=== PATIENT | male | born 1955 | race Caucasian/White ===

== ENCOUNTER 2022-07-19 09:31 | Oncology outpatient (recurring) (ONCR) | payer OTHER, SELFPAY ==
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
[2022-07-19 11:09] LABS: Basophils % 0.5 %; Eosinophils # 0.3 10^3/uL (0.0-0.8); Eosinophils % 3.9 %; Hematocrit 43.6 % (42.0-52.0); Hemoglobin 14.6 g/dL (11.7-16.6); Lymphocytes # 2.5 10^3/uL (0.8-4.8); Lymphocytes % 30.8 %; Mean Corpuscular HGB Conc 33.5 g/dL (30.0-36.0); Mean Corpuscular Hemoglobin 30.2 pg (28.0-34.0); Mean Corpuscular Volume 90.1 fl (80-94); Mean Platelet Volume 9.4 fL (7.4-10.4); Monocytes # 0.6 10^3/uL (0.2-0.9); Neutrophils # 4.58 10^3/uL (1.8-7.7); Neutrophils % 57.7 %; Nucleated Red Blood Cells % 0 %; Platelet Count 295 10^3/cmm (130-400); Red Blood Count 4.84 10^6/uL (4.1-5.3)
[2022-07-19 11:46] LABS: Alanine Aminotransferase 13 U/L (0-41); Alkaline Phosphatase 114 U/L (40-130); Anion Gap 17.2 (5-19); Aspartate Amino Transferase 19 U/L (0-40); Blood Urea Nitrogen 20 mg/dL (8-23); Calcium 9.1 mg/dL (8.5-10.5); Carbon Dioxide 23 mmol/L (22-29); Chloride 102 mmol/L (98-107); Glomerular Filtration Rate 96.7 mL/min (90-130); Glucose 90 mg/dL (65-115); Lactate Dehydrogenase 279 U/L (135-225); Osmolality Calculated 288 mOsm/kg (285-295); Potassium 4.2 mmol/L (3.5-5.1); Sodium 138 mmol/L (136-145); Total Bilirubin 0.4 mg/dL (0.15-1.2)
== END 2022-07-25 23:59 | disposition home or self-care (01) ==
PROVIDERS: Visit Provider Radiology Radiation Oncology
DX: C79.31 Secondary malignant neoplasm of brain (principal); Z85.820 Personal history of malignant melanoma of skin; C43.9 Malignant melanoma of skin, unspecified
CPT/HCPCS: 36415; 80053; 83615; 85025; 99205

== ENCOUNTER 2022-08-03 06:00 | Oncology outpatient (recurring) (ONCR) | payer OTHER, SELFPAY ==
[2022-08-23 07:03] LABS: BRAF V600E (BBPL) See Report
== END 2022-08-24 23:59 | disposition home or self-care (01) ==
LOC: ONCMED 08-20 16:08
PROVIDERS: Radiology Radiation Oncology; Visit Provider Internal Medicine Hematology & Oncology
DX: Z53.9 Procedure and treatment not carried out, unspecified reason (principal)
CPT/HCPCS: 80503; 81210

== ENCOUNTER 2023-08-13 10:30 | Oncology outpatient (recurring) (ONCR) | payer OTHER, SELFPAY ==
[2023-07-31 13:35] LABS: Basophils # 0.1 10^3/uL (0.0-0.1); Basophils % 0.6 %; Eosinophils # 0.4 10^3/uL (0.0-0.8); Eosinophils % 4.3 %; Hematocrit 44.5 % (37-53); Lymphocytes # 2.2 10^3/uL (0.8-4.8); Lymphocytes % 25.1 %; Mean Corpuscular HGB Conc 33.7 g/dL (30-55); Mean Corpuscular Hemoglobin 30.1 pg (27-33); Mean Corpuscular Volume 89.2 fl (82-101); Mean Platelet Volume 9.4 fL (7.4-10.4); Monocytes # 0.6 10^3/uL (0.2-0.9); Neutrophils # 5.37 10^3/uL (1.8-7.7); Neutrophils % 62.8 %; Nucleated Red Blood Cells % 0 %; Platelet Count 277 10^3/cmm (157-399); Red Blood Count 4.99 10^6/uL (3.85-5.65); White Blood Count 8.56 10^3/uL (3.29-11.43)
[2023-07-31 14:07] LABS: Alanine Aminotransferase 14 U/L (0-41); Albumin Level 3.7 g/dL (3.5-5.2); Alkaline Phosphatase 92 U/L (40-130); Anion Gap 13.4 (5-19); Aspartate Amino Transferase 22 U/L (0-40); Blood Urea Nitrogen 18 mg/dL (8-23); Calcium 8.4 mg/dL (8.5-10.5); Carbon Dioxide 24 mmol/L (22-29); Chloride 104 mmol/L (98-107); Globulin 2.7 g/dL (1.3-4.6); Glomerular Filtration Rate 134.4 mL/min (90-130); Glucose 152 mg/dL (65-115); Lactate Dehydrogenase 230 U/L (135-225); Osmolality Calculated 289 mOsm/kg (285-295); Potassium 4.4 mmol/L (3.5-5.1); Sodium 137 mmol/L (136-145); Thyroid Stimulating Hormone 1.64 uIU/mL (0.27-4.20); Total Bilirubin 0.2 mg/dL (0.15-1.2); Total Protein 6.4 g/dL (6.6-8.7)
[2023-08-13 12:30] VITALS: BMI 27.8
[2023-08-13 13:03] LABS: Basophils # 0.1 10^3/uL (0.0-0.1); Basophils % 0.7 %; Eosinophils # 0.4 10^3/uL (0.0-0.8); Eosinophils % 4.8 %; Hematocrit 42.6 % (37-53); Lymphocytes % 26.9 %; Mean Corpuscular HGB Conc 32.9 g/dL (30-55); Mean Corpuscular Hemoglobin 29.4 pg (27-33); Mean Corpuscular Volume 89.5 fl (82-101); Mean Platelet Volume 9.3 fL (7.4-10.4); Monocytes # 0.7 10^3/uL (0.2-0.9); Monocytes % 8.8 %; Neutrophils # 4.31 10^3/uL (1.8-7.7); Neutrophils % 58.7 %; Nucleated Red Blood Cells % 0 %; Platelet Count 281 10^3/cmm (157-399); Red Blood Count 4.76 10^6/uL (3.85-5.65); Red Cell Distribution Width 13.1 % (12.1-15.1); White Blood Count 7.35 10^3/uL (3.29-11.43)
[2023-08-13 13:34] LABS: Alanine Aminotransferase 13 U/L (0-41); Albumin Level 3.5 g/dL (3.5-5.2); Alkaline Phosphatase 107 U/L (40-130); Anion Gap 12.7 (5-19); Aspartate Amino Transferase 23 U/L (0-40); Blood Urea Nitrogen 21 mg/dL (8-23); Calcium 8.6 mg/dL (8.5-10.5); Carbon Dioxide 28 mmol/L (22-29); Chloride 104 mmol/L (98-107); Globulin 2.9 g/dL (1.3-4.6); Glomerular Filtration Rate 66.8 mL/min (90-130); Glucose 112 mg/dL (65-115); Osmolality Calculated 294 mOsm/kg (285-295); Potassium 4.7 mmol/L (3.5-5.1); Sodium 140 mmol/L (136-145); Thyroid Stimulating Hormone 2.46 uIU/mL (0.27-4.20); Total Bilirubin 0.2 mg/dL (0.15-1.2); Total Protein 6.4 g/dL (6.6-8.7)
[2023-08-13] MEDS: sodium chloride 0.9% 250 ML 75 ML IV (14:19)
[2023-08-13] MEDS: acetaminophen 325 mg Tablet 650 MG PO (14:22)
[2023-08-13] MEDS: diphenhydrAMINE 50 mg/mL SDV 1mL IVP (14:23)
[2023-08-13] MEDS: famotidine 20 mg/2 mL INJ IVP (14:23)
[2023-08-13] MEDS: dexamethasone 20 MG in sodium chloride 0.9% 50 ML 188 MG IV (14:28)
[2023-08-13] MEDS: nivolumab 240 MG in sodium chloride 0.9% 250 ML 548 MG IV (14:52)
[2023-08-13 16:40] VITALS: BP 156/89; PULSE 84; RESP 16; TEMP 36.8; O2SAT 97
--- NOTE | 2023-08-14 17:43 | N.ONRAD NP_ITS ---
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 Now with disease progression at least in soft tissue of left flank and right chest. Now beginning Opdivo and Yervoy today. Restaging MRI head and PET/CT now scheduled. Radiotherapy to date: Summary > No prior radiation therapy. Chief Complaint / History of Present Illness: He had a cutaneous melanoma resected from his upper back performed elsewhere in the past. No further information is available. 04/2022 resection of right occipital lobe mass which was metastatic melanoma. Staging CT chest abd and pelvis negative. Staging Pet/CT 08/2022 malignant appearing soft tissue mass left flank with uptake consistent with metastatic disease on my review No adjuvant treatment pursued. Not compliant with follow-up. No additional follow-up imaging.. Now notes significant neck pain, progressively enlarging left flank mass and new right anterior chest mass both causing some pain. He also notes that left hand time buyer is weak for 10 years and [facility] that [facility]. . No nausea or vomiting. Gained 10 pounds in last 6 months. Some JIMENEZ with no other neurologic symptoms. No seizures. Current Medications: atenolol 50 mg PO DAILY, gabapentin 300 mg PO BID, meloxicam 15 mg PO DAILY, tamsulosin (Flomax) 0.4 mg PO DAILY Allergies: No Known Allergies Allergy Medical History: No history of collagen vascular disease. No previous radiation therapy. Melanoma Surgical History: resected melanoma Family History: Mother: Anesthesia complication, Cancer, Dementia Family/Other: Cancer uncle on throat cancer Family/Other Cancer niece had blood cancer Father: Stroke Denies family history of Diabetes, CAD (coronary artery disease), Clotting disorder, Hyperlipidemia, Psychiatric illness, Chronic kidney disease (CKD), Suicide, Bleeding disorder, Family history of premature coronary artery disease, Lung disease, Hypertension Social History: . Lives alone . He does have supportive friends. Was in [employer] 1972 to 1976. Smokes ??? ppd from 18 to current time. Enjoyed motorcycles. 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 Current Complaints / Review of Systems: . Vital Signs: Performed on 08/13/2023 10:42 AM BMI - 28.038 kg/m2 (high), Height - 68 in, Weight - 184.4 lbs, Temperature - 97.5 f, Pulse - 65 /min, Respiration - 16 /min, O2 Sat - 97 %, Pain - 7, Fatigue - 0 and BP - 140/ 81 mm(hg). Physical Exam: Elderly appearing for his age. No palpable cervical or supraclavicular adenopathy. Neck supple with no spinal tenderness. General reduced cervical range of motion. 2 x 2 cm right inferior medial breast-chest wall mass. 13 x 7 cm visible minimal mobile left posterior left lumbar level mass domed with normal overlying skin. Left time buyer weakness without other focal neurologic deficits. Performance Status: ECOG 1 Pathology: none available. 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 Now with known progressive symptomatic soft tissue metastases in left flank and right chest regions. He also has neck pain worrisome for possible osseous involvement and headaches with history of resected brain met in 04/2022. . Recommend proceeding now with Opdivo and Yervoy as planned. Need restaging eval with MRI brain and PET/CT to assist in directing course of palliative radiation. Discussed in detail with patient. Signed by: 08/14/2023 5:41:31 PM <<Signature on File>> Time spent with patient: CPT Code: CPT Code:
== END 2023-08-13 23:59 | disposition home or self-care (01) ==
PROVIDERS: Visit Provider Internal Medicine Medical Oncology
DX: Z51.11 Encounter for antineoplastic chemotherapy (principal); C79.31 Secondary malignant neoplasm of brain; C79.51 Secondary malignant neoplasm of bone; C43.9 Malignant melanoma of skin, unspecified
CPT/HCPCS: 36415; 80053; 83615; 84443; 85025; 96367; 96375; 96413; 96415; 99205; 99215; J1100; J1200; J3490; J7050; J9228; J9299

== ENCOUNTER → 2023-08-15 13:10 | Outpatient (BNVA) | payer OTHER, SELFPAY | PROVIDERS: PCP Nurse Practitioner; Visit Provider Surgery | DX: C79.31 Secondary malignant neoplasm of brain (principal); C43.9 Malignant melanoma of skin, unspecified | CPT/HCPCS: 99204 ==

== ENCOUNTER 2023-08-20 09:45 | Oncology outpatient (recurring) (ONCR) | payer OTHER, SELFPAY | END 2023-08-24 23:59 | disposition home or self-care (01) | PROVIDERS: Visit Provider Internal Medicine Medical Oncology | DX: Z53.9 Procedure and treatment not carried out, unspecified reason (principal) ==

== ENCOUNTER 2023-08-28 09:48 | Day surgery (SDC) | payer OTHER, SELFPAY ==
[2023-08-28] VITALS (11 sets, daily range): BP systolic 103–147; BP diastolic 60–88; PULSE 66–92; RESP 16–18; TEMP 36.2–36.6; O2SAT 94–99; BMI 29.0
--- NOTE | 2023-08-28 06:31 | W.PM.OPSUD ---
Surgery/Procedure H&P Update DATE OF PROCEDURE: August 28, 2023 DATE H&P PERFORMED: 08/15/23 H&P UPDATE INFORMATION: I have reviewed H&P completed within last 30 days, I have examined patient prior to procedure, No changes to prior documentation and H&P is in [facility] EMR on date indicated PLANNED PROCEDURE: Operation Date: 08/28/23 11:35 Proposed Procedures p 34465 Placement of port a cath C79.31(Not Applicable) - Rolan Bolden MD
--- NOTE | 2023-08-28 10:36 | SC_ITS ---
WS: [id number] EXAMINATION: C-arm FL for CVA [id number] REASON FOR EXAM: port a cath COMPARISON: None available. ORDER DATE: 08/28/2023 10:36 AM FINDINGS: Port-A-Cath placement appears to be satisfactory on the right with tip in the region of the cavoatria l junction IMPRESSION: Total fluoroscopy time 21.8 seconds
[2023-08-28] MEDS: sodium chloride 0.9% 1,000 ML 30 ML IV (10:41)
--- NOTE | 2023-08-28 11:12 | ANES.PREANE2 ---
Pre-Anesthetic Assessment Height/Weight: Height 1.68 m Weight 81.647 kg O2 Del Method Room Air 08/28/23 10:30 Operation Date: 08/28/23 11:35 Proposed Procedures p 75377 Placement of port a cath C79.31(Not Applicable) - Rolan Bloden MD Familial anesthetic complications: None Was Beta Austin taken within 24 hours: Yes Was Clonidine taken within 24 hours: N/A Last intake: Intake Last Liquid Date 08/27/23 Last Liquid Time 22:00 Last Solid Date 08/27/23 Last Solid Time 22:00 Social Tobacco and No alcohol Exam alert, oriented x 3, clear to auscultation bilaterally and regular rate & rhythm Airway Mallampati: Class II Dentition: full CV/HEM Hypertension Musc/skel malignant melanoma Anesthetic Plan ASA status: 3 Anesthesia: MAC Risk of > 500 ml blood loss (7ml/kg in children): No Medications/Allergies Home Medications Medication Instructions Recorded Confirmed Last Taken Type atenolol 50 mg tablet 50 mg PO DAILY 07/31/23 08/27/23 08/27/23 History gabapentin 300 mg capsule 300 mg PO BID 07/31/23 08/27/23 08/27/23 History meloxicam 15 mg tablet 15 mg PO DAILY 07/31/23 08/27/23 08/27/23 History tamsulosin 0.4 mg capsule (Flomax) 0.4 mg PO DAILY 07/31/23 08/27/23 08/27/23 History prochlorperazine maleate 10 mg 10 mg PO Q4H PRN Mild Nausea #30 08/08/23 08/28/23 08/27/23 Rx tablet (Compazine) tabs aspirin 81 mg tablet,delayed 81 mg PO DAILY 08/15/23 08/28/23 08/27/23 History release oxycodone 5 mg tablet 5 mg PO TID PRN Pain 08/26/23 08/27/23 08/27/23 History sildenafil 50 mg tablet 50 mg PO DAILY PRN Sexual Activity 08/26/23 08/28/23 08/27/23 History Allergies Allergy/AdvReac Type Severity Reaction Status Date / Time No Known Allergies Allergy Verified 08/28/23 10:28 Current Medications Generic Name Dose Route Start Last Admin Trade Name Freq PRN Reason Stop Dose Admin Sodium Chloride 1,000 mls @ 30 mls/hr 08/28/23 10:45 08/28/23 10:41 Sodium Chloride 0.9% IV 08/29/23 10:44 30 mls/hr .Q24H MERCEDES Administration PFSH Anesthesia Medical History (Updated 08/26/23 @ 14:58 by Raaht Helm) Melanoma Family History Mother Anesthesia complication Cancer Dementia Family/Other Cancer uncle on throat cancer Family/Other Cancer niece had blood cancer Father Stroke Denies family history of Diabetes CAD (coronary artery disease) Clotting disorder Hyperlipidemia Psychiatric illness Chronic kidney disease (CKD) Suicide Bleeding disorder Family history of premature coronary artery disease Lung disease Hypertension Social History (Updated 08/26/23 @ 14:59 by Rahat Helm) Smoking and tobacco status: current every day smoker cigarettes Packs smoked per day: 0.25 Years cigarettes smoked: 50 [ Other cigarette details: smoked since 1972] Data Anesthesia Cardiac Studies: No Data to Display
[2023-08-28] MEDS: ceFAZolin 2,000 MG in sodium chloride 0.9% (plus) 50 ML 100 MG IV (12:23)
[2023-08-28] MEDS: lidocaine-epi 2% 20 mL INJ INJECTION (12:49)
[2023-08-28] MEDS: heparin, porcine 1,000 unit/mL INJ 10 mL 10000 UNIT IRRIGATION (13:11)
--- NOTE | 2023-08-28 13:15 | PM.OP ---
Operative Report Date of procedure: August 28, 2023 Pre-op diagnosis: Metastatic melanoma Post-op diagnosis: Same Procedure done: Right IJ Port-A-Cath placement Implants: Part Port-A-Cath Surgeon: Rolan Bolden MD Estimated blood loss: 5 cc Complications: None Findings: Normal vascular anatomy Brief History: 67-year-old male with metastatic melanoma who requires chemotherapy, I have been asked to proceed with a port placement. All the risk and benefits of the procedure were discussed with the patient as documented in my preop note. Procedure: Patient was brought into the OR, placed in the supine position. Moderate anesthesia sedation was given. The neck and right chest was prepped and draped in the usual sterile fashion. Timeout was conducted. The right IJ was identified with ultrasound, local anesthesia was injected. I then cannulated the right IJ under direct ultrasound guidance, the needle tip was seen entering the vessel and immediate blood return was noted. A wire was advanced, needle removed wire position was verified with ultrasound and with fluoroscopy. I then placed my attention into the chest I injected local anesthesia the area where the Port-A-Cath is going to sit, I also injected local anesthesia in the area where the toenail from the chest to the neck was going to be. I then made a 2.5 cm incision on the right upper chest, the incision was deepened to subcutaneous tissue using electrocautery, electrocautery was then used to create subcutaneous pocket to house the Port-A-Cath. I then used a hemostat to create a tunnel from the area of the Port-A-Cath to the neck. I then made a 0.5 cm incision at the area of wire insertion site at the neck. The cord was then placed in the pocket and the catheter tunneled to the neck using the tunneler. Catheter was flushed to verify integrity after tunneling and measure under fluoroscopy guidance and Plan. I then advanced a peel-off sheath with an introducer through the wire under direct fluoroscopy guidance, the wire and introducer were removed leaving only the sheath. The catheter was then advanced through the sheath and the peel off sheath was then removed leaving the catheter in place. Adequate blood return and flushing was noted. The catheter was hep-locked. I then proceeded to close the wounds using #3-0 Vicryl for the subcutaneous tissue and #4 Monocryl for the skin. Dermabond was applied. At the end of the procedure all counts were correct. The patient tolerated well the procedure and was transferred to the PACU in stable condition.
--- NOTE | 2023-08-28 13:57 | ANE.PACU2 ---
Inpatient post-anesthesia follow up: Airway intact: Yes Vital signs: Temperature 97.8 F Pulse Rate 72 Respiratory Rate 16 Blood Pressure 109/82 Pulse Oximetry 94 Oxygen Delivery Me thod Room Air Oxygen Flow Rate Fraction of Inspir ed Oxygen Hydration adequate: Yes Nausea and vomiting: No Pain level: 1 Mental status: Baseline
--- NOTE | 2023-08-28 14:41 | PM.OP2 ---
Brief Operative Note Date of procedure: 08/28/23 Procedure Done: Port-A-Cath placement Post-op Plan: patient doing well after Port-A-Cath placement, has not been able to obtain a ride home and does not have an escort. Therefore we have decided to keep the patient in observation overnight as it would not be safe for the patient to go home without an escort. Coding Level of Care Code Acute Code for g Ingris
--- NOTE | 2023-08-28 14:45 | PC.NURSE ---
unable to find someone to be with patient at home for [address] Dillon. Plan to admit for 24 hour observation. Awaiting room number. Patient stable.
--- NOTE | 2023-08-28 15:48 | SUR.PHASEII ---
Patient admitted for observation overnight due to no one at home to monitor him after anesthesia. Report called to MS nurse, all questions answered.
[2023-08-28] MEDS: oxyCODONE 5 mg IR Tab/Cap PO ×2 (16:40→23:03)
[2023-08-28] MEDS: gabapentin 300 mg Capsule PO (16:40)
== END 2023-08-28 23:15 | disposition home or self-care (01) ==
LOC: OR 10:35 → MEDSURG 15:43
PROVIDERS: PCP Nurse Practitioner; Visit Provider Surgery
PROC: (CPT 36561; principal; 2023-08-28 11:25)
DX: C79.31 Secondary malignant neoplasm of brain (principal); C43.9 Malignant melanoma of skin, unspecified
CPT/HCPCS: 36561; 76000; 77001; C1788; J0690; J1644; J2250; J2704; J3010; J7030

== ENCOUNTER 2023-08-30 11:57 | Emergency (ER) | payer OTHER, SELFPAY ==
[2023-08-30 12:17] VITALS: BP 157/92; PULSE 87; RESP 16; TEMP 37; O2SAT 100; BMI 30.3
--- NOTE | 2023-08-30 12:39 | ED_ITS ---
HPI - Abdominal Pain General: Chief Complaint: Abdominal Pain Stated Complaint: hernia rupture Time Seen by Provider: 08/30/23 12:28 Source: patient Mode of arrival: ambulatory Limitations: no limitations History of Present Illness: Patient presents to the emergency department today for evaluation treatment of right groin pain. 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 He reports as a child he had hernia repair but denies any repair as an adult. He states that sometimes goes in and out but today, he coughed hard and states he thinks he ripped it open . He has some testicular heaviness on the right but no specific pain. He has been able to urinate since this occurred. He has not been having sweats or vomiting. Review of Systems General: Reports: 10 or more systems reviewed and unremarkable except in HPI and below PFSH ED PFSH: Medical History Melanoma Family History Mother Anesthesia complication Cancer Dementia Family/Other Cancer uncle on throat cancer Family/Other Cancer niece had blood cancer Father Stroke Denies family history of Diabetes CAD (coronary artery disease) Clotting disorder Hyperlipidemia Psychiatric illness Chronic kidney disease (CKD) Suicide Bleeding disorder Family history of premature coronary artery disease Lung disease Hypertension Social History Smoking and tobacco status: current every day smoker cigarettes Packs smoked per day: 0.25 Years cigarettes smoked: 50 [ Other cigarette details: smoked since 1972] Physical Exam Const: COMMON NORMALS: patient oriented x3 and alert OTHER: Patient is pleasant but obviously uncomfortable. HENMT: COMMON NORMALS: normocephalic, atraumatic, hearing grossly normal bilaterally and moist oral mucous membranes HEAD & SCALP: normocephalic and atraumatic Eye: COMMON NORMALS: Equal, round and reactive pupils present, EOMs intact bilaterally and conjunctivae normal CONJUNCTIVA: Yes conjunctivae normal PUPIL: Yes Equal, round and reactive pupils present Neck/C-Spine: COMMON NORMALS: full ROM and no JVD Lymph: LYMPHATIC: no lymphadenopathy noted Resp: COMMON NORMALS: normal respiratory effort, No retractions, No use of accessory muscles and clear to auscultation bilaterally AUSCULTATION: clear to auscultation bilaterally Cardio: COMMON NORMALS: no JVD, regular rate and regular rhythm RATE: regular rate RHYTHM: regular rhythm GI: OTHER: Patient has obvious bulging in the right groin region. Area is profusely tender on palpation but no overlying erythema. Skin is soft. : COMMON NORMALS: Yes no CVA tenderness BLADDER/KIDNEY EXAM: Yes no CVA tenderness OTHER: No obvious scrotal swelling. No scrotal erythema. Back/Pelvis: COMMON NORMALS: no CVA tenderness, no thoracic nor lumbar tenderness and thoraco-lumbar ROM normal Extremity: COMMON NORMALS: normal to inspection, full ROM and capillary refill normal Neuro: COMMON NORMALS: patient oriented x3 SENSORIUM/ORIENTATION: Yes alert Psych: COMMON NORMALS: mental status grossly normal, Normal thought process present, cooperative, normal affect and activity/motor behavior normal THOUGHT PROCESS: Normal thought process present Skin: COMMON NORMALS: no rashes or lesions noted and no wounds GENERAL SKIN EXAM: no rashes or lesions noted Course Vital Signs: Vital signs: Vital Signs Temperature 98.6 F 08/30/23 12:17 Pulse Rate 83 08/30/23 12:46 Respiratory Rate 17 08/30/23 12:46 Blood Pressure 163/107 08/30/23 12:46 Pulse Oximetry 97 08/30/23 12:46 Oxygen Delivery Me thod Room Air 08/30/23 12:46 MDM - Abdominal Pain Medical Decision Making Originally, ultrasound was ordered to quickly evaluate for incarcerated bowel and loss of blood flow however, patient's lab work came back relatively quickly and was able to have a CT exam. I was notified by the radiologist that there was only fat-containing inguinal hernia without signs of incarceration or bowel present. However, he was concerned as it does appear that several areas of the patient's metastatic disease have progressed. Also there was bladder wall th ickening concerning for cystitis. Urinalysis revealed white blood cells and blood but very little bacteria-quite a bit of yeast present. This would correlate with his immunocompromise state. I did discuss the case with Dr. Magallon who attended patient at bedside and performed a partial reduction of the hernia though bits of the soft tissue and fat continued to poke through even after reduction. We refer the patient onto general surgery to discuss more definitive management of his hernias but, strict return precautions for return of hernia-including signs of incarcerated hernia were provided. I did discuss with him treatment of a yeast cystitis and the finding of the enlarging metastatic region to the soft tissue of his left lower back. Patient verbalized understanding and agreement to treatment plan. Differential Diagnosis Likely abdominal pain; Unlikely acute appendicitis, calculus of kidney, constipation, diverticulitis, gastroenteritis, pancreatitis or small bowel obstruction Lab Data 08/30/23 12:40 08/30/23 12:40 Labs/Radiology: Laboratory Results WBC 8.59 10^3/uL (3.29-11.43) 08/30/23 12:40 RBC 5.03 10^6/uL (3.85-5.65) 08/30/23 12:40 Hgb 14.80 g/dL (11.27-16.99) 08/30/23 12:40 Hct 44.4 % (37-53) 08/30/23 12:40 MCV 88.3 fl (82-101) 08/30/23 12:40 MCH 29.4 pg (27-33) 08/30/23 12:40 MCHC 33.3 g/dL (30-55) 08/30/23 12:40 RDW 13.1 % (12.1-15.1) 08/30/23 12:40 Plt Count 296 10^3/cmm (157-399) 08/30/23 12:40 MPV 9.4 fL (7.4-10.4) 08/30/23 12:40 Neut % (Auto) 68.4 % 08/30/23 12:40 Lymph % (Auto) 21.1 % 08/30/23 12:40 [place] % (Auto) 8.0 % 08/30/23 12:40 Eos % (Auto) 1.7 % 08/30/23 12:40 Baso % (Auto) 0.6 % 08/30/23 12:40 Neut # (Auto) 5.87 10^3/uL (1.8-7.7) 08/30/23 12:40 Lymph # (Auto) 1.8 10^3/uL (0.8-4.8) 08/30/23 12:40 [place] # (Auto) 0.7 10^3/uL (0.2-0.9) 08/30/23 12:40 Eos # (Auto) 0.2 10^3/uL (0.0-0.8) 08/30/23 12:40 Baso # (Auto) 0.1 10^3/uL (0.0-0.1) 08/30/23 12:40 Nucleated RBC % (auto) 0 % 08/30/23 12:40 Nucleated RBCs # 0.0 /100WBC 08/30/23 12:40 Sodium 137 mmol/L (136-145) 08/30/23 12:40 Potassium 4.5 mmol/L (3.5-5.1) 08/30/23 12:40 Chloride 98 mmol/L (98-107) 08/30/23 12:40 Carbon Dioxide 29 mmol/L (22-29) 08/30/23 12:40 Anion Gap 14.5 (5-19) 08/30/23 12:40 BUN 18 mg/dL (8-23) 08/30/23 12:40 Creatinine 0.9 mg/dL (0.7-1.2) 08/30/23 12:40 GFR Calculation 84.2 mL/min (90-130) L 08/30/23 12:40 Glucose 102 mg/dL (65-115) 08/30/23 12:40 Calculated Osmolality 286 mOsm/kg (285-295) 08/30/23 12:40 Calcium 9.5 mg/dL (8.5-10.5) 08/30/23 12:40 Total Bilirubin 0.4 mg/dL (0.15-1.2) 08/30/23 12:40 AST 24 U/L (0-40) 08/30/23 12:40 ALT 15 U/L (0-41) 08/30/23 12:40 Alkaline Phosphatase 108 U/L (40-130) 08/30/23 12:40 Total Protein 7.3 g/dL (6.6-8.7) 08/30/23 12:40 Albumin 4.1 g/dL (3.5-5.2) 08/30/23 12:40 Globulin 3.2 g/dL (1.3-4.6) 08/30/23 12:40 Urine Color Yellow (Yellow) 08/30/23 14:23 Urine Appearance Cloudy (CLEAR) A 08/30/23 14:23 Urine pH 6.5 (5-7) 08/30/23 14:23 Ur Specific [place] 1.010 (1.005-1.030) 08/30/23 14:23 Urine Protein Trace (Negative) 08/30/23 14:23 Urine Glucose (UA) Norm (Normal) 08/30/23 14:23 Urine Ketones Negative (Negative) 08/30/23 14:23 Urine Blood 2+ (Negative) H 08/30/23 14:23 Urine Nitrate Negative (Negative) 08/30/23 14:23 Urine Bilirubin Neg (Negative) 08/30/23 14:23 Urine Urobilinogen Norm mg/dL (Negative) 08/30/23 14:23 Ur Leukocyte Esterase 2+ (Negative) H 08/30/23 14:23 Urine RBC 0-4 /hpf (0-2) H 08/30/23 14:23 Urine WBC 25-40 /hpf (0-5) H 08/30/23 14:23 Ur Squamous Epith Cells 0-4 /hpf (0-5) H 08/30/23 14:23 Amorphous Sediment Not Reportable 08/30/23 14:23 Urine Bacteria Trace /hpf (NONE) 08/30/23 14:23 Urine Yeast 2+ /hpf H 08/30/23 14:23 All radiology interpretation(s) finalized by discharge Discharge Plan Discharge Patient Disposition: Home Clinical Impression: Hernia, inguinal, right, Yeast infection Condition: Stable Prescriptions: New fluconazole 200 mg tablet 200 mg PO DAILY 14 Days Qty: 14 0RF No Action aspirin 81 mg tablet,delayed release (DR/EC) 81 mg PO QAM atenolol 50 mg tablet 50 mg PO QAM tamsulosin [Flomax] 0.4 mg capsule 0.4 mg PO DAILY gabapentin 300 mg capsule 300 mg PO BID sildenafil 50 mg tablet 50 mg PO DAILY PRN (Reason: Sexual Activity) Rx Instructions: administer 30 minutes to 4 hours before activity/1 tab broken in half prochlorperazine maleate [Compazine] 10 mg tablet 10 mg PO Q4H PRN (Reason: Mild Nausea) Qty: 30 3RF oxycodone 5 mg tablet 5 mg PO Q8H PRN (Reason: pain) Qty: 10 0RF meloxicam 7.5 mg tablet 7.5 mg PO QAM Discharge Orders: Discharge ED (Routine); Ordered 08/30/23 Ordered By: Jumana Ford Referrals: Jade Adamson, PERMANENT MOLD SUPERVISOR [Primary Care Provider] - Discharge Diet: Usual diet Discharge Activity: Increase activity as tolerated Patient Instructions: Yeast Infection (ED), Pain Management Activity Restrictions/Additional Instructions: Lab work today showed no signs of acute concerns. CT examination revealed soft tissue and a fat-containing inguinal hernia without any intestinal involvement or concerns for intestinal incarceration. Given that this seems to come and go and you have had issues with this in the past, we are referring you back to general surgery for evaluation to discuss more definitive treatment. However, if this happens again and you have severe pain, vomiting, develops sweats or fever you need to be seen and evaluated in the emergency department. CT scan also showed bladder wall thickening concerns for a cystitis or bladder infection. The urinalysis confirms signs of an infection but rather than bacteria, it appears to be a yeast cystitis. We are providing you medication to combat this infection and recommend a follow-up appoint with your primary care doctor after the course of treatment is completed to assure full resolution of all these findings. Incidentally, the CT examination also notes a significant enlargement in size of one of the metastases in your left low back soft tissue compared to previous examinations. We do recommend notifying your doctor of this finding so they are aware. Coding Level of Care Code ED Retail Cashier Associate for [employer]o Amado
[2023-08-30 12:44] VITALS: RESP 17
[2023-08-30] MEDS: morphine 4 mg/mL SDV 1 mL IVP (12:44)
[2023-08-30] MEDS: metoclopramide 5 mg/mL SDV 2 mL 10 MG IVP (12:44)
[2023-08-30] MEDS: sodium chloride 0.9% 1,000 ML 999 ML IV (12:45)
[2023-08-30] MEDS: ketorolac 30 mg/mL INJ IVP (12:45)
[2023-08-30 12:46] VITALS: BP 163/107; PULSE 83; RESP 17; O2SAT 97
[2023-08-30 12:56] LABS: Basophils # 0.1 10^3/uL (0.0-0.1); Basophils % 0.6 %; Eosinophils # 0.2 10^3/uL (0.0-0.8); Eosinophils % 1.7 %; Hematocrit 44.4 % (37-53); Lymphocytes # 1.8 10^3/uL (0.8-4.8); Lymphocytes % 21.1 %; Mean Corpuscular HGB Conc 33.3 g/dL (30-55); Mean Corpuscular Hemoglobin 29.4 pg (27-33); Mean Corpuscular Volume 88.3 fl (82-101); Mean Platelet Volume 9.4 fL (7.4-10.4); Monocytes # 0.7 10^3/uL (0.2-0.9); Neutrophils # 5.87 10^3/uL (1.8-7.7); Neutrophils % 68.4 %; Nucleated Red Blood Cells % 0 %; Platelet Count 296 10^3/cmm (157-399); Red Blood Count 5.03 10^6/uL (3.85-5.65); Red Cell Distribution Width 13.1 % (12.1-15.1); White Blood Count 8.59 10^3/uL (3.29-11.43)
[2023-08-30 13:17] LABS: Alanine Aminotransferase 15 U/L (0-41); Albumin Level 4.1 g/dL (3.5-5.2); Alkaline Phosphatase 108 U/L (40-130); Aspartate Amino Transferase 24 U/L (0-40); Blood Urea Nitrogen 18 mg/dL (8-23); Calcium 9.5 mg/dL (8.5-10.5); Carbon Dioxide 29 mmol/L (22-29); Chloride 98 mmol/L (98-107); Globulin 3.2 g/dL (1.3-4.6); Glomerular Filtration Rate 84.2 mL/min (90-130); Glucose 102 mg/dL (65-115); Osmolality Calculated 286 mOsm/kg (285-295); Sodium 137 mmol/L (136-145); Total Bilirubin 0.4 mg/dL (0.15-1.2); Total Protein 7.3 g/dL (6.6-8.7)
--- NOTE | 2023-08-30 13:19 | CT_ITS ---
WS: [id number] CT pelvis TECHNIQUE: Contrast-enhanced CT of the pelvis with coronal and sagittal reformatted images. CLINICAL INFORMATION: RLQ pain COMPARISON: None. DLP: 398.[address] scans at [facility] use at least one of these dose optimization techniques: automated e xposure control; mA and/or kV adjustment per patient size (includes targeted exams where dose is matc hed to clinical indication); or iterative reconstruction. FINDINGS: Previously described subcutaneous LEFT lower back metastatic lesion is significantly increased in siz e compared to the prior PET/CT 09/08/2022. Previously this measured approximately 3.2 x 2.7 cm and to day measures approximately 10.1 x 6.1 x 7.4 cm partially extending off the [id number] cranially. C entral necrosis. Tiny fat-containing umbilical hernia. Fat-containing RIGHT inguinal hernia is similar in appearance t o the prior PET/CT. No herniated or entrapped bowel. Diffuse bladder wall thickening can be seen with cystitis or bladder outlet obstruction. Mild prostat e hypertrophy measuring 3.4 cm. Advanced spondylitic changes lumbar spine. Chronic unilateral RIGHT L 5-S1 spondylolysis. Severe bilateral L5-S1 foraminal narrowing. Slight anterolisthesis L5 on S1. Disc narrowing visualized lower lumbar spine with vacuum disc phenomenon. IMPRESSION: 1. Fat-containing RIGHT inguinal hernia. No herniated bowel. This is similar in appearance to prior PET/CT 09/08/2022. 2. Large centrally necrotic subcutaneous LEFT lower back metastatic lesion described above is signif icantly increased in size since the prior PET/CT. 3. Mild diffuse bladder wall thickening can be seen with cystitis or bladder outlet obstruction. Mil d prostate enlargement measuring 3.4 cm. 4. No other acute findings. Notified WILLY Arana at 08/30/2023 2:07 PM.
[2023-08-30 13:20] LABS: Anion Gap 14.5 (5-19); Potassium 4.5 mmol/L (3.5-5.1)
[2023-08-30] MEDS: iohexol 350 mg/mL 500 mL Btl (per mL) IV (13:31)
[2023-08-30 14:57] LABS: Add Urine Microscopic? YES; Bilirubin Urine Neg (Negative); Blood Urine 2+ (Negative); Glucose Urine UA Norm (Normal); Ketones Urine Negative (Negative); Leukocyte Esterase Urine 2+ (Negative); Nitrate Urine Negative (Negative); Protein Urine Trace (Negative); Urine Appearance Cloudy (CLEAR); Urine Color Yellow (Yellow); Urobilinogen Urine Norm (Negative); pH Urine 6.5 (5-7)
[2023-08-30 14:59] LABS: Add Urine Culture? Yes; Bacteria Urine TRACE /hpf; Other Sediment, Urine BUD YEAST W/HYPHAE; RBC Urine 0-4 /hpf (0-2); Squamous Epithelial Cell Urine 0-4 /hpf (0-5); WBC Urine 25-40 /hpf (0-5)
--- NOTE | 2023-08-30 15:01 | PC.SOCIAL ---
General Surgery; referral to general surgery at this time. Clinic to contact patient with appt date/time.
== END 2023-08-30 15:21 | disposition home or self-care (01) ==
PROVIDERS: Emergency Provider Physician Assistant; PCP Nurse Practitioner
DX: K40.90 Unilateral inguinal hernia, without obstruction or gangrene, not specified as recurrent (principal); B37.9 Candidiasis, unspecified; Z79.82 Long term (current) use of aspirin; F17.210 Nicotine dependence, cigarettes, uncomplicated
CPT/HCPCS: 72193; 80053; 81001; 85025; 87086; 87106; 96361; 96374; 96375; 99285; J1885; J2270; J2765; J7030; Q9967

== ENCOUNTER 2023-09-11 11:15 | Outpatient (CLI) | payer OTHER, SELFPAY ==
[2023-09-11] MEDS: gadobenate dimeglumine 20 mL vial IV (12:06)
--- NOTE | 2023-09-11 13:00 | MR_ITS ---
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 Now having JIMENEZ COMPARISON: 05/24/2022, 05/17/2022 TECHNIQUE: Multiplanar imaging performed through the brain with MultiHance 17 ml's IV. Postoperative RIGHT occipital temporal craniotomy is reidentified. Patient is status post intra-axial tumor removal. Noted to be metastatic melanoma as per history. No recurrence of tumor at the resection site. There is no enhancement at the postoperative cavity. No new areas of nodularity or enhancement are identified. There is some motion artifact causing limitat ion. Diffusion imaging is normal. No mass effect or midline shift. No edema. No inferior displacement of t he cerebellar tonsils. Mild small vessel ischemic disease is identified. Increased T2 signal around t he RIGHT occipital horn is related to the resection cavity. Paranasal sinuses: Well aerated with no significant disease. Mastoid air cells: Normal. Calvarium and scalp: Normal. IMPRESSION: 1. Stable postoperative changes of RIGHT occipital temporal craniotomy. Resection of the previously described mass. No recurrence. No new areas of enhancement in the resection site. This study is mildl y compromised by motion artifact. 2. No acute infarct. 3. Mild small vessel ischemic disease.
== END 2023-09-11 11:16 | disposition home or self-care (01) ==
PROVIDERS: PCP Nurse Practitioner; Visit Provider Radiology Radiation Oncology
DX: C79.31 Secondary malignant neoplasm of brain (principal); R51.9 Headache, unspecified; I67.89 Other cerebrovascular disease; Z98.890 Other specified postprocedural states
CPT/HCPCS: 70553; A9577

== ENCOUNTER 2023-09-13 08:19 | Oncology outpatient (recurring) (ONCR) | payer OTHER, SELFPAY ==
[2023-08-26 12:45] VITALS: BP 115/70; PULSE 68; RESP 16; TEMP 36.7; O2SAT 98
[2023-08-26 13:14] LABS: Basophils # 0.1 10^3/uL (0.0-0.1); Basophils % 0.5 %; Eosinophils # 0.3 10^3/uL (0.0-0.8); Hematocrit 43.7 % (37-53); Lymphocytes # 1.9 10^3/uL (0.8-4.8); Lymphocytes % 17.4 %; Mean Corpuscular HGB Conc 32.3 g/dL (30-55); Mean Corpuscular Hemoglobin 29.4 pg (27-33); Mean Corpuscular Volume 91.2 fl (82-101); Mean Platelet Volume 9.4 fL (7.4-10.4); Monocytes # 0.8 10^3/uL (0.2-0.9); Monocytes % 7.3 %; Neutrophils % 71.5 %; Nucleated Red Blood Cells % 0 %; Platelet Count 280 10^3/cmm (157-399); Red Blood Count 4.79 10^6/uL (3.85-5.65); White Blood Count 10.89 10^3/uL (3.29-11.43)
[2023-08-26 13:33] LABS: Alkaline Phosphatase 98 U/L (40-130); Aspartate Amino Transferase 20 U/L (0-40); Blood Urea Nitrogen 31 mg/dL (8-23); Carbon Dioxide 27 mmol/L (22-29); Chloride 103 mmol/L (98-107); Glomerular Filtration Rate 84.2 mL/min (90-130); Glucose 84 mg/dL (65-115); Osmolality Calculated 294 mOsm/kg (285-295); Sodium 139 mmol/L (136-145); Total Bilirubin 0.4 mg/dL (0.15-1.2)
[2023-08-26 13:34] LABS: Anion Gap 13.5 (5-19); Potassium 4.5 mmol/L (3.5-5.1)
[2023-08-26 13:46] LABS: Alanine Aminotransferase 15 U/L (0-41)
[2023-09-12 08:58] VITALS: BP 158/89; PULSE 87; RESP 18; TEMP 36.6; O2SAT 99
[2023-09-12 09:01] LABS: Basophils # 0.1 10^3/uL (0.0-0.1); Basophils % 0.6 %; Eosinophils # 0.3 10^3/uL (0.0-0.8); Eosinophils % 2.6 %; Hematocrit 43.6 % (37-53); Lymphocytes # 2.5 10^3/uL (0.8-4.8); Mean Corpuscular HGB Conc 33.3 g/dL (30-55); Mean Corpuscular Volume 90.3 fl (82-101); Mean Platelet Volume 9.5 fL (7.4-10.4); Monocytes % 8.7 %; Neutrophils # 7.07 10^3/uL (1.8-7.7); Neutrophils % 64.8 %; Nucleated Red Blood Cells % 0 %; Platelet Count 262 10^3/cmm (157-399); Red Blood Count 4.83 10^6/uL (3.85-5.65); Red Cell Distribution Width 13.1 % (12.1-15.1)
[2023-09-12 09:30] LABS: Alanine Aminotransferase 18 U/L (0-41); Albumin Level 3.7 g/dL (3.5-5.2); Alkaline Phosphatase 92 U/L (40-130); Aspartate Amino Transferase 20 U/L (0-40); Blood Urea Nitrogen 21 mg/dL (8-23); Calcium 8.7 mg/dL (8.5-10.5); Carbon Dioxide 28 mmol/L (22-29); Globulin 2.8 g/dL (1.3-4.6); Glomerular Filtration Rate 84.2 mL/min (90-130); Glucose 148 mg/dL (65-115); Total Bilirubin 0.5 mg/dL (0.15-1.2); Total Protein 6.5 g/dL (6.6-8.7)
[2023-09-12 09:37] LABS: Anion Gap 11.9 (5-19); Chloride 102 mmol/L (98-107); Osmolality Calculated 292 mOsm/kg (285-295); Potassium 3.9 mmol/L (3.5-5.1); Sodium 138 mmol/L (136-145)
--- NOTE | 2023-09-12 11:44 | PC.NURSE ---
pt d/c home with PAC in place, to return tomorrow for treatment. opdivo not in stock today.
[2023-09-13 08:26] VITALS: BMI 29.7
[2023-09-13] MEDS: sodium chloride 0.9% 250 ML 75 ML IV (09:13)
[2023-09-13] MEDS: acetaminophen 325 mg Tablet 650 MG PO (09:15)
[2023-09-13] MEDS: diphenhydrAMINE 50 mg/mL SDV 1mL IVP (09:16)
[2023-09-13] MEDS: famotidine 20 mg/2 mL INJ IVP (09:24)
[2023-09-13] MEDS: dexamethasone 20 MG in sodium chloride 0.9% 50 ML 188 MG IV (09:30)
[2023-09-13] MEDS: nivolumab 240 MG in sodium chloride 0.9% 250 ML 548 MG IV (10:05)
[2023-09-13 11:55] VITALS: BP 144/88; PULSE 80; RESP 18; TEMP 36.5; O2SAT 99
== END 2023-09-13 23:59 | disposition home or self-care (01) ==
PROVIDERS: Nurse Practitioner Family; PCP Nurse Practitioner; Visit Provider Internal Medicine Medical Oncology
DX: C43.9 Malignant melanoma of skin, unspecified (principal); Z51.12 Encounter for antineoplastic immunotherapy
CPT/HCPCS: 36415; 36591; 80053; 85025; 96367; 96375; 96413; 96417; 99214; J1100; J1200; J1642; J3490; J7050; J9228; J9299

== ENCOUNTER 2023-09-24 08:22 | Oncology outpatient (recurring) (ONCR) | payer OTHER, SELFPAY ==
[2023-09-24 08:50] VITALS: BP 142/89; PULSE 64; RESP 16; TEMP 36.9; O2SAT 99
[2023-09-24 09:03] LABS: Basophils # 0.1 10^3/uL (0.0-0.1); Basophils % 0.8 %; Eosinophils # 0.3 10^3/uL (0.0-0.8); Eosinophils % 3.3 %; Hematocrit 42.2 % (37-53); Lymphocytes # 2.9 10^3/uL (0.8-4.8); Lymphocytes % 32.6 %; Mean Corpuscular HGB Conc 33.4 g/dL (30-55); Mean Corpuscular Hemoglobin 29.6 pg (27-33); Mean Corpuscular Volume 88.7 fl (82-101); Mean Platelet Volume 9.5 fL (7.4-10.4); Monocytes % 11.5 %; Neutrophils # 4.51 10^3/uL (1.8-7.7); Neutrophils % 51.6 %; Nucleated Red Blood Cells % 0 %; Platelet Count 211 10^3/cmm (157-399); Red Blood Count 4.76 10^6/uL (3.85-5.65); Red Cell Distribution Width 13.1 % (12.1-15.1); White Blood Count 8.75 10^3/uL (3.29-11.43)
[2023-09-24 09:25] LABS: Alanine Aminotransferase 23 U/L (0-41); Albumin Level 3.5 g/dL (3.5-5.2); Alkaline Phosphatase 89 U/L (40-130); Anion Gap 12.8 (5-19); Blood Urea Nitrogen 15 mg/dL (8-23); Calcium 8.5 mg/dL (8.5-10.5); Carbon Dioxide 27 mmol/L (22-29); Chloride 101 mmol/L (98-107); Globulin 2.9 g/dL (1.3-4.6); Glomerular Filtration Rate 96.4 mL/min (90-130); Glucose 130 mg/dL (65-115); Osmolality Calculated 285 mOsm/kg (285-295); Potassium 4.8 mmol/L (3.5-5.1); Sodium 136 mmol/L (136-145); Total Bilirubin 0.2 mg/dL (0.15-1.2); Total Protein 6.4 g/dL (6.6-8.7)
[2023-09-24 09:33] LABS: Aspartate Amino Transferase 21 U/L (0-40)
[2023-09-24 10:29] LABS: Slide Review Slide Review Perform
[2023-09-24 11:30] LABS: Add Urine Microscopic? YES; Bilirubin Urine Neg (Negative); Blood Urine 2+ (Negative); Glucose Urine UA Norm (Normal); Ketones Urine Negative (Negative); Leukocyte Esterase Urine 2+ (Negative); Nitrate Urine Negative (Negative); Protein Urine Neg (Negative); Specific Gravity, Urine 1.015 (1.005-1.030); Urine Appearance SL Hazy (CLEAR); Urine Color Yellow (Yellow); Urobilinogen Urine Norm (Negative); pH Urine 5 (5-7)
[2023-09-24 12:00] LABS: Add Urine Culture? Yes; Bacteria Urine TRACE /hpf; Mucus Urine TRACE /hpf; RBC Urine 0-4 /hpf (0-2); Squamous Epithelial Cell Urine 0-4 /hpf (0-5); WBC Urine 15-25 /hpf (0-5)
== END 2023-09-24 23:59 | disposition home or self-care (01) ==
PROVIDERS: Nurse Practitioner Family; PCP Nurse Practitioner; Visit Provider Internal Medicine Medical Oncology
DX: R30.0 Dysuria (principal); C43.9 Malignant melanoma of skin, unspecified; C79.31 Secondary malignant neoplasm of brain; Z79.899 Other long term (current) drug therapy
CPT/HCPCS: 36591; 80053; 81001; 85025; 87086; 99214; J1642

== ENCOUNTER 2023-10-01 08:41 | Outpatient (CLI) | payer OTHER, SELFPAY ==
--- NOTE | 2023-10-01 08:30 | PETR_ITS ---
PROCEDURE INFORMATION: Exam: PET/CT Whole Body Exam date and time: 10/01/2023 10:44 AM Age: 67 years old Clinical indication: Condition or disease; Condition/disease: HX melanoma; Additional info: Follow up, tobi LABS AND CLINICAL REPORTS: Glucose: 113 mg/dl Treatment strategy for malignancy (PET staging): Restaging (PS) TECHNIQUE: Imaging protocol: Following at least four-hour fasting and following the injection of radiopharmaceutical, low dose CT images were obtained. Then, PET images were obtained. Attenuation corrected images were constructed using the CT scan. Fused images of PET and CT were reviewed. The standardized uptake values (SUV) reported below are maximum values within a region of interest, expressed in gm/ml. Exam includes the whole body. Radiopharmaceutical: 10.66 mCi F-18 FDG (Fluorodeoxyglucose), IV. Time of imaging post radiopharmaceutical administration: 1 hour Injection site: Not specified COMPARISON: MRI brain 09/11/2023, CT pelvis 08/30/2023, PT PET Scan 09/08/2022 11:25 AM FINDINGS: Limitations: No limitations on the current study. The prior comparison PET-CT examination is somewhat technically suboptimal secondary to the scan to injection time outside of recommended parameters (45-75 minutes). Reported scan to injection time of 92 minutes. Injection to scan times outside of recommended parameters can result in decreased PET sensitivity and limit the utility of comparison of SUV values to prior or subsequent exams. Tubes, catheters and devices: A right internal jugular central venous port catheter terminates in the right atrium. Brain: Visualized brain has normal physiologic uptake. Pharynx: No abnormal uptake. Larynx: No abnormal uptake. Lungs, pleura and trachea: No abnormal uptake. Heart: Normal physiologic uptake. Mediastinal space: No abnormal uptake. Liver: No abnormal uptake. Gallbladder and bile ducts: No abnormal uptake. Pancreas: No abnormal uptake. Spleen: No abnormal uptake. Adrenal glands: No abnormal uptake. Kidneys and ureters: Normal physiologic uptake. Stomach and bowel: No abnormal uptake. Vasculature: No abnormal uptake. Lymph nodes: No abnormal uptake. No lymphadenopathy in the head, neck, chest, abdomen, pelvis, and extremities. Bones/joints: Mild, likely inflammatory uptake along the posterior aspect of the right knee joint capsule is noted, SUV max 3.3 and in the region of the left glenohumeral joint capsule anteriorly, SUV max 3.4 without definitive evidence of correlating lesions on the CT images. Primary osteoarthritic changes within both knees and glenohumeral joints are noted. [id number] diffuse degenerative vertebral body spondylosis is present. Soft tissues: A new subcutaneous soft tissue density nodule in the anterior right chest wall inferior to the pectoralis musculature on series 3, image 161 measures 1.6 x 1.1 cm, SUV max 2.1. In the subcutaneous fat of the posterior left flank region on series 3, image 196 a thick-walled lesion with central fluid density measures 9.1 x 5.9 cm with uptake in its wall, SUV max 5.7 (previously 3.3 x 3.3 cm with a previous SUV max 31.2 on the prior PET-CT). Moderate right and small left fat containing uncomplicated appearing bilateral inguinal hernias are present. A previously noted small subcutaneous nodule anterior to the left inguinal canal on the prior PET-CT is unchanged in size measuring 4 mm on series 3, image 249, SUV max 0.7 (previously 4.2). METRICS: Mediastinal blood pool: SUV max 2.1 PET/PET WB melanoma SUBSEQ [id number] IMPRESSION: 1. Interval increase in size of a centrally necrotic appearing mass in the subcutaneous fat of the left flank region compared with the prior PET-CT. There is persistent but significantly decreased uptake within its wall suggestive of partial response to therapy. 2. A 4 mm subcutaneous soft tissue density nodule anterior to the left inguinal canal is similar in size since the prior PET-CT with interval complete resolution of previously noted elevated uptake. 3. A new ovoid subcutaneous nodule with low-level uptake in the anterior right chest wall inferior to the level of the pectoralis musculature is noted. While malignancy cannot be excluded, the low-level uptake may alternatively be indicative of localized inflammatory changes. Correlation with clinical findings is recommended. 4. Additional nonurgent findings as detailed above.
== END 2023-10-01 08:42 | disposition home or self-care (01) ==
LOC: RAD 08:42
PROVIDERS: PCP Nurse Practitioner; Visit Provider Internal Medicine Medical Oncology
DX: C79.31 Secondary malignant neoplasm of brain (principal); Z85.820 Personal history of malignant melanoma of skin
CPT/HCPCS: 78816; A9552

== ENCOUNTER 2023-10-03 08:50 | Oncology outpatient (recurring) (ONCR) | payer OTHER, SELFPAY ==
[2023-10-03 09:19] VITALS: BP 148/87; PULSE 78; RESP 18; TEMP 37.1; O2SAT 98
[2023-10-03 09:25] LABS: Basophils # 0.1 10^3/uL (0.0-0.1); Basophils % 0.7 %; Eosinophils # 0.4 10^3/uL (0.0-0.8); Eosinophils % 4.8 %; Hematocrit 41.3 % (37-53); Lymphocytes # 2.6 10^3/uL (0.8-4.8); Lymphocytes % 29.2 %; Mean Corpuscular HGB Conc 32.9 g/dL (30-55); Mean Corpuscular Hemoglobin 29.6 pg (27-33); Mean Platelet Volume 9.1 fL (7.4-10.4); Monocytes % 10.6 %; Neutrophils # 4.88 10^3/uL (1.8-7.7); Neutrophils % 54.5 %; Nucleated Red Blood Cells % 0 %; Platelet Count 254 10^3/cmm (157-399); Red Blood Count 4.59 10^6/uL (3.85-5.65); Red Cell Distribution Width 12.8 % (12.1-15.1); White Blood Count 8.95 10^3/uL (3.29-11.43)
[2023-10-03 09:53] LABS: Albumin Level 3.5 g/dL (3.5-5.2); Alkaline Phosphatase 97 U/L (40-130); Anion Gap 12.1 (5-19); Aspartate Amino Transferase 26 U/L (0-40); Blood Urea Nitrogen 19 mg/dL (8-23); Calcium 8.2 mg/dL (8.5-10.5); Carbon Dioxide 25 mmol/L (22-29); Chloride 101 mmol/L (98-107); Globulin 3.3 g/dL (1.3-4.6); Glomerular Filtration Rate 96.4 mL/min (90-130); Glucose 122 mg/dL (65-115); Osmolality Calculated 282 mOsm/kg (285-295); Potassium 4.1 mmol/L (3.5-5.1); Sodium 134 mmol/L (136-145); Thyroid Stimulating Hormone 1.82 uIU/mL (0.27-4.20); Total Bilirubin 0.2 mg/dL (0.15-1.2); Total Protein 6.8 g/dL (6.6-8.7)
[2023-10-03 10:04] LABS: Alanine Aminotransferase 27 U/L (0-41)
[2023-10-03] MEDS: sodium chloride 0.9% 250 ML 75 ML IV (11:17)
[2023-10-03] MEDS: dexamethasone 20 MG in sodium chloride 0.9% 50 ML 188 MG IV (11:17)
[2023-10-03] MEDS: acetaminophen 325 mg Tablet 650 MG PO (11:47)
[2023-10-03] MEDS: famotidine 20 mg/2 mL INJ IVP (11:52)
[2023-10-03] MEDS: diphenhydrAMINE 50 mg/mL SDV 1mL IVP (11:56)
[2023-10-03] MEDS: nivolumab 240 MG in sodium chloride 0.9% 250 ML 548 MG IV (12:11)
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
[2023-10-03 13:58] VITALS: BP 124/78; PULSE 78; RESP 18; TEMP 36.6; O2SAT 98
== END 2023-10-03 23:59 | disposition home or self-care (01) ==
PROVIDERS: Nurse Practitioner Family; PCP Nurse Practitioner; Visit Provider Internal Medicine Medical Oncology
DX: C43.9 Malignant melanoma of skin, unspecified; C79.31 Secondary malignant neoplasm of brain; Z79.899 Other long term (current) drug therapy; Z51.11 Encounter for antineoplastic chemotherapy
CPT/HCPCS: 80053; 84443; 85025; 96367; 96375; 96413; 96417; 99215; J1100; J1200; J3490; J7050; J9228; J9299

== ENCOUNTER 2023-10-24 09:07 | Oncology outpatient (recurring) (ONCR) | payer OTHER, SELFPAY ==
[2023-10-24 09:49] LABS: Basophils # 0.1 10^3/uL (0.0-0.1); Basophils % 0.7 %; Eosinophils # 0.6 10^3/uL (0.0-0.8); Eosinophils % 4.9 %; Hematocrit 46.8 % (37-53); Lymphocytes # 2.7 10^3/uL (0.8-4.8); Mean Corpuscular HGB Conc 32.7 g/dL (30-55); Mean Corpuscular Hemoglobin 29.4 pg (27-33); Mean Corpuscular Volume 89.8 fl (82-101); Mean Platelet Volume 9.3 fL (7.4-10.4); Monocytes % 8.8 %; Neutrophils # 6.79 10^3/uL (1.8-7.7); Neutrophils % 61.2 %; Nucleated Red Blood Cells % 0 %; Platelet Count 308 10^3/cmm (157-399); Red Blood Count 5.21 10^6/uL (3.85-5.65); Red Cell Distribution Width 13.2 % (12.1-15.1); White Blood Count 11.12 10^3/uL (3.29-11.43)
[2023-10-24 10:21] LABS: Alanine Aminotransferase 130 U/L (0-41); Albumin Level 3.5 g/dL (3.5-5.2); Alkaline Phosphatase 105 U/L (40-130); Anion Gap 12.2 (5-19); Aspartate Amino Transferase 70 U/L (0-40); Blood Urea Nitrogen 16 mg/dL (8-23); Calcium 8.7 mg/dL (8.5-10.5); Carbon Dioxide 26 mmol/L (22-29); Chloride 101 mmol/L (98-107); Free T4 Free Thyroxine 1.15 ng/dL (0.82-1.77); Globulin 2.9 g/dL (1.3-4.6); Glomerular Filtration Rate 112.1 mL/min (90-130); Glucose 108 mg/dL (65-115); Osmolality Calculated 282 mOsm/kg (285-295); Potassium 4.2 mmol/L (3.5-5.1); Sodium 135 mmol/L (136-145); T3 Free 3.7 PG/ML (2.0-4.4); Thyroid Stimulating Hormone 1.29 uIU/mL (0.27-4.20); Total Bilirubin 0.5 mg/dL (0.15-1.2); Total Protein 6.4 g/dL (6.6-8.7)
[2023-10-24] MEDS: sodium chloride 0.9% 250 ML 75 ML IV (12:22)
[2023-10-24] MEDS: acetaminophen 325 mg Tablet 650 MG PO (12:22)
[2023-10-24] MEDS: diphenhydrAMINE 50 mg/mL SDV 1mL IVP (12:23)
[2023-10-24] MEDS: famotidine 20 mg/2 mL INJ IVP (12:30)
[2023-10-24] MEDS: dexamethasone 20 MG in sodium chloride 0.9% 50 ML 188 MG IV (12:33)
[2023-10-24] MEDS: nivolumab 240 MG in sodium chloride 0.9% 250 ML 548 MG IV (13:09)
[2023-10-24 15:15] VITALS: BP 156/94; PULSE 75; RESP 16; O2SAT 96
== END 2023-10-24 23:59 | disposition home or self-care (01) ==
PROVIDERS: Internal Medicine Medical Oncology; PCP Nurse Practitioner; Visit Provider Internal Medicine Medical Oncology
DX: Z51.11 Encounter for antineoplastic chemotherapy (principal); C43.9 Malignant melanoma of skin, unspecified; C79.31 Secondary malignant neoplasm of brain; Z79.899 Other long term (current) drug therapy
CPT/HCPCS: 80053; 84439; 84443; 84481; 85025; 96367; 96375; 96413; 96417; 99214; J1100; J1200; J1642; J3490; J7050; J9228; J9299

== ENCOUNTER 2023-11-21 08:04 | Oncology outpatient (recurring) (ONCR) | payer OTHER, SELFPAY ==
[2023-11-21 08:30] VITALS: BP 159/94; PULSE 64; RESP 16; TEMP 36.9; O2SAT 100
[2023-11-21 08:39] LABS: Basophils # 0.1 10^3/uL (0.0-0.1); Basophils % 0.9 %; Eosinophils # 0.6 10^3/uL (0.0-0.8); Eosinophils % 6.1 %; Hematocrit 44.2 % (37-53); Lymphocytes # 2.4 10^3/uL (0.8-4.8); Mean Corpuscular HGB Conc 32.6 g/dL (30-55); Mean Corpuscular Hemoglobin 29.1 pg (27-33); Mean Corpuscular Volume 89.5 fl (82-101); Mean Platelet Volume 9.4 fL (7.4-10.4); Monocytes # 0.9 10^3/uL (0.2-0.9); Monocytes % 9.2 %; Neutrophils # 5.32 10^3/uL (1.8-7.7); Neutrophils % 57.6 %; Nucleated Red Blood Cells % 0 %; Platelet Count 267 10^3/cmm (157-399); Red Blood Count 4.94 10^6/uL (3.85-5.65); Red Cell Distribution Width 13.3 % (12.1-15.1); White Blood Count 9.23 10^3/uL (3.29-11.43)
[2023-11-21 09:07] LABS: Alanine Aminotransferase 236 U/L (0-41); Albumin Level 3.9 g/dL (3.5-5.2); Alkaline Phosphatase 118 U/L (40-130); Anion Gap 13.6 (5-19); Aspartate Amino Transferase 122 U/L (0-40); Blood Urea Nitrogen 18 mg/dL (8-23); Calcium 8.9 mg/dL (8.5-10.5); Carbon Dioxide 26 mmol/L (22-29); Chloride 106 mmol/L (98-107); Globulin 2.8 g/dL (1.3-4.6); Glomerular Filtration Rate 96.1 mL/min (90-130); Glucose 114 mg/dL (65-115); Osmolality Calculated 295 mOsm/kg (285-295); Potassium 4.6 mmol/L (3.5-5.1); Sodium 141 mmol/L (136-145); Thyroid Stimulating Hormone 2.18 uIU/mL (0.27-4.20); Total Bilirubin 0.2 mg/dL (0.15-1.2); Total Protein 6.7 g/dL (6.6-8.7)
[2023-11-21] MEDS: sodium chloride 0.9% 1,000 ML 999 ML IV (11:16)
[2023-11-21 12:41] VITALS: BP 158/83; PULSE 71; RESP 18; TEMP 36.8; O2SAT 98
== END 2023-11-24 23:59 | disposition home or self-care (01) ==
PROVIDERS: Internal Medicine Hematology & Oncology; PCP Nurse Practitioner; Visit Provider Internal Medicine Medical Oncology
DX: C43.9 Malignant melanoma of skin, unspecified (principal); Z79.899 Other long term (current) drug therapy; C79.31 Secondary malignant neoplasm of brain; K40.90 Unilateral inguinal hernia, without obstruction or gangrene, not specified as recurrent
CPT/HCPCS: 80053; 84443; 85025; 96360; 99214; J1642; J7030

== ENCOUNTER 2024-09-07 15:35 | Emergency (ER) | payer OTHER, SELFPAY ==
[2024-09-07] VITALS (8 sets, daily range): BP systolic 132–170; BP diastolic 70–100; PULSE 51–133; RESP 16–18; TEMP 36.7; O2SAT 95–100; BMI 25.8
--- NOTE | 2024-09-07 15:46 | CTR_ITS ---
PROCEDURE INFORMATION: Exam: CT Abdomen And Pelvis With Contrast Exam date and time: 09/07/2024 4:51 PM Age: 68 years old Clinical indication: Abdominal pain; Additional info: Abd pain TECHNIQUE: Imaging protocol: Computed tomography of the abdomen and pelvis with contrast. Sagittal and coronal reformatted images were created and reviewed. Radiation optimization: All CT scans at this facility use at least one of these dose optimization techniques: automated exposure control; mA and/or kV adjustment per patient size (includes targeted exams where dose is matched to clinical indication); or iterative reconstruction. Contrast material: OMNI 350; Contrast volume: 100 ml; Contrast route: INTRAVENOUS (IV); COMPARISON: PT PET WB melanoma SUBSEQ [id number] 10/01/2023 10:44 AM RADIATION DOSE METRICS: Total DLP (mGy-cm): 752 FINDINGS: Tubes, catheters and devices: The tip of a central line is in the right atrium.Stable mild enlargement of the heart. Lungs: Visualized lungs are clear. Pleural spaces: No pleural effusion. Coronary arteries: Stable mild atherosclerotic calcification in the coronary arteries. Liver: The liver is unremarkable. Gallbladder and biliary ducts: The gallbladder is unremarkable. No biliary ductal dilatation. Pancreas: The pancreas is unremarkable. No pancreatic ductal dilatation. Spleen: The spleen is unremarkable. Adrenal glands: The right and left adrenal glands are unremarkable. Kidneys and ureters: Subcentimeter hypodense foci in both right and left kidneys that are too small to characterize, however likely represent small cysts. Simple cyst in the right kidney measuring 1.5 cm. The right and left ureters are unremarkable. Stomach and bowel: Increased fecal content in the colon. No acute abnormality in the small bowel. Ingested contents in the stomach. Appendix: The appendix is visualized and is unremarkable. No findings to suggest acute appendicitis. Intraperitoneal space: No free intraperitoneal air. No ascites. No loculated fluid collections to suggest an abscess. Vasculature: Stable mild atherosclerotic calcifications in the visualized arteries. No evidence for aortic aneurysm or aortic dissection. Hepatic veins, portal veins, splenic vein, and SMV are patent. Lymph nodes: No lymphadenopathy. Urinary bladder: Stable diffuse, mild bladder wall thickening with a trabeculated appearance of the bladder wall. Stable 1 4.4 mm bladder stone in the left bladder base (series 3, image 76). Reproductive: Nonspecific parenchymal calcifications in the prostate gland. Large right hydrocele, increased in size. Stable small left hydrocele. Visualized testes are unremarkable. Stable nonspecific parenchymal calcifications in the prostate gland. Bones/joints: Degenerative changes in the spine, sacroiliac joints, and hips. Bilateral pars defects at L5-S1 with grade 1 anterolisthesis of L5 on S1. Multilevel foraminal stenosis of varying severity in the lumbar spine. No lytic or sclerotic bony lesions. Soft tissues: Stable fat containing right inguinal hernia. No evidence for strangulation. Decrease in size of a necrotic mass in the posterior left flank at the level of the L2 vertebral body. The mass now measures 4.2 x 3.8 x 6.9 cm, previously measured 7.5 x 5.[address]/CT abdomen pelvis w con* [id number] IMPRESSION: 1. Stable diffuse, mild bladder wall thickening with a trabeculated appearance of the bladder wall. Findings suggest sequela of chronic outlet obstruction. 2. Large right hydrocele, increased in size. Stable small left hydrocele. 3. Stable fat containing right inguinal hernia. No evidence for strangulation. 4. Increased fecal content in the colon. 5. Decrease in size of a necrotic mass in the posterior left flank at the level of the L2 vertebral body. 6. Incidental/nonacute findings are listed in the report. COMMENTS: Consistent with the [employer]'s Incidental Findings Committee white paper (J Am Bam Radiol 2018): Any incidental renal lesion less than 1 cm or classified as too small to characterize, or any incidental cystic renal lesion characterized as simple-appearing, is likely benign. No follow-up imaging is recommended for these lesions per consensus recommendations based on imaging criteria.
[2024-09-07 16:15] LABS: Basophils % 0.4 %; Eosinophils # 0.4 10^3/uL (0.0-0.8); Eosinophils % 5.1 %; Hematocrit 46.8 % (37-53); Lymphocytes # 1.4 10^3/uL (0.8-4.8); Lymphocytes % 17.8 %; Mean Corpuscular HGB Conc 33.1 g/dL (30-55); Mean Corpuscular Hemoglobin 30.2 pg (27-33); Mean Corpuscular Volume 91.1 fl (82-101); Mean Platelet Volume 9.4 fL (7.4-10.4); Monocytes # 0.6 10^3/uL (0.2-0.9); Monocytes % 7.1 %; Neutrophils # 5.48 10^3/uL (1.8-7.7); Neutrophils % 69.3 %; Nucleated Red Blood Cells % 0 %; Platelet Count 215 10^3/cmm (157-399); Red Blood Count 5.14 10^6/uL (3.85-5.65); Red Cell Distribution Width 12.7 % (12.1-15.1)
--- NOTE | 2024-09-07 16:23 | ED_ITS ---
Documented by User: Anirudh Rose DO 09/08/24 10:14 HPI - Abdominal Pain 2 General: Chief Complaint: Abdominal Pain Stated Complaint: RLQ pain Time Seen by Provider: 09/07/24 15:45 History of Present Illness: 60-year-old male presents emergency room with right lower quadrant abdominal pain. He has a known history of disseminated melanoma he has not had any treatment for the last 6 months. PET scan reviewed on the chart and oncology notes. Patient Patricia previously had a brain lesion had a occipital temporal craniotomy for excision. He also had had a radiation. He had a large necrotic mass in the left flank. There is some question of lesions in the chest wall but those by the description of the report were indeterminant. Patient has not had any further treatments in the last 6 months. Is complaining of right lower quadrant pain. He had been attributing his pain to a right inguinal hernia which has been present for some time with exertion he will notice or protrude he can easily reduce it. He has not had any vomiting no diarrhea. Denies dysuria urgency or frequency Associated Symptoms: Reports nausea and vomiting; Denies chills, dysuria and fever(s) Related Data Home Medications Medication Instructions Recorded Confirmed atenolol 50 mg tablet 50 mg PO QAM 07/31/23 11/21/23 gabapentin 300 mg capsule 300 mg PO BID 07/31/23 11/21/23 aspirin 81 mg tablet,delayed 81 mg PO QAM 08/15/23 11/21/23 release sildenafil 50 mg tablet 50 mg PO DAILY PRN Sexual Activity 08/26/23 11/21/23 meloxicam 7.5 mg tablet 7.5 mg PO QAM 08/30/23 11/21/23 Previous Rx's Medication Instructions Recorded prochlorperazine maleate 10 mg 10 mg PO Q4H PRN Mild Nausea #30 08/08/23 tablet (Compazine) tabs amoxicillin 875 mg tablet 875 mg PO BID #20 tabs 09/25/23 tamsulosin 0.4 mg capsule (Flomax) 0.4 mg PO .twice daily #60 caps 09/25/23 oxycodone 5 mg tablet 5 mg PO Q8H PRN pain 30 days #90 11/01/23 tabs loperamide 2 mg tablet (Imodium 2 mg PO Q4H PRN loose stools #30 11/21/23 A-D) tabs cefdinir 300 mg capsule 300 mg PO BID 7 days #14 caps 09/07/24 Allergies Allergy/AdvReac Type Severity Reaction Status Date / Time No Known Allergies Allergy Verified 11/21/23 10:03 Review of Systems 2 Const: Denies: fever(s) or chills Card: Denies: chest pain Resp: Denies: dyspnea GI: Reports: abdominal pain, nausea and vomiting : Denies: dysuria, urinary frequency or urinary urgency Musc: Denies: neck pain or back pain Skin/Breast: Denies: rash PFSH ED 2 PFSH: Medical History Melanoma Family History Mother Anesthesia complication Cancer Dementia Family/Other Cancer uncle on throat cancer Family/Other Cancer niece had blood cancer Father Stroke Denies family history of Diabetes CAD (coronary artery disease) Clotting disorder Hyperlipidemia Psychiatric illness Chronic kidney disease (CKD) Suicide Bleeding disorder Family history of premature coronary artery disease Lung disease Hypertension Social History Smoking and tobacco/nicotine status: current every day tobacco/nicotine user cigarettes Packs smoked per day: 0.25 Years cigarettes smoked: 50 [ Other cigarette details: smoked since 1972/currently down to 3 cigarrettes daily] Physical Exam 2 Const: GENERAL APPEARANCE: cooperative and comfortable O RIENTATION/CONSCIOUSNESS: Yes awake, Yes oriented to person, Yes oriented to place and Yes oriented to time HENMT: COMMON NORMALS: normocephalic, atraumatic and hearing grossly normal bilaterally HEAD & SCALP: normocephalic and atraumatic Resp: COMMON NORMALS: normal respiratory effort, No retractions, No use of accessory muscles and clear to auscultation bilaterally AUSCULTATION: clear to auscultation bilaterally Cardio: COMMON NORMALS: regular rate, regular rhythm and No murmurs present (Cardio) RATE: regular rate RHYTHM: regular rhythm GI: COMMON NORMALS: Soft to palpation and No hepatosplenomegaly present A USCULTATION: Yes normoactive bowel sounds PALPATION: Yes Soft to palpation, No Tenderness to palpation present (GI), No Guarding due to palpation present (GI) and Yes No hepatosplenomegaly present OTHER: Fullness in the right inguinal area. No large bulges does appear to be excess tissue in the inguinal canal. There is some fullness to the right testicle Extremity: COMMON NORMALS: normal to inspection, capillary refill normal, no clubbing, cyanosis or edema, no calf tenderness and no pedal edema Neuro: SENSORIUM/ORIENTATION: Yes oriented to person, Yes oriented to place and Yes oriented to time Skin: COMMON NORMALS: no rashes or lesions noted GENERAL SKIN EXAM: no rashes or lesions noted Course 2 Vital Signs: Vital signs: Vital Signs Temperature 98.1 F 09/07/24 15:38 Pulse Rate 52 L 09/07/24 19:42 Respiratory Rate 18 09/07/24 17:54 Blood Pressure 167/100 09/07/24 19:42 Pulse Oximetry 96 09/07/24 19:42 Oxygen Delivery Me thod Room Air 09/07/24 18:51 MDM - Abdominal Pain Medical Decision Making Care signed out to Dr. Lim at change of shift. See final notes for diagnosis and disposition. Patient presents with abdominal pain and hernia that he cannot reduce today. The hernia has been here for a while. Results of CT scan were pending. Patient was placed Trendelenburg and given pain meds. Patient was transitioned me at shift change. Awaiting CT results. Possible reduction of hernia. Also lab work was still pending. Reexamination: 1 into the room the patient is sleeping soundly. He is in Trendelenburg position. He has reduced the hernia himself. Discussed that it has been coming out more often. He also has been having some pelvic pain and he feels like might be gas. CT of the abdomen pelvis: No acute findings. He has bilateral hydroceles. Mild bladder wall thickening. Hernia is present again. This was present a year ago on a CT scan. He says the hernia has been present for a long time but he can usually reduce it and usually does not have quite this much pain. No evidence of strangulation. There is also a necrotic mass seen on CT. He said he was being treated for cancer. This is improved as well. Consultation: I spoke with Dr. Fields who is on-call for surgery. He will see the patient in clinic as this can be done not emergently. As the patient has reduced it. Assessment and plan: Urinary tract infection Inguinal hernia ?IV morphine Trendelenburg and reduce. ? IV Rocephin - Discharged home - Discussed plan with patient. Answered any questions. - Evaluation and treatment of this problem were appropriate in the emergency setting. Lab Data 09/07/24 16:02 09/07/24 16:02 Labs/Radiology: Radiology Impressions Abdomen/Pelvis CT 09/07/24 15:46 IMPRESSION: 1. Stable diffuse, mild bladder wall thickening with a trabeculated appearance of the bladder wall. Findings suggest sequela of chronic outlet obstruction. 2. Large right hydrocele, increased in size. Stable small left hydrocele. 3. Stable fat containing right inguinal hernia. No evidence for strangulation. 4. Increased fecal content in the colon. 5. Decrease in size of a necrotic mass in the posterior left flank at the level of the L2 vertebral body. 6. Incidental/nonacute findings are listed in the report. COMMENTS: Consistent with the [employer]'s Incidental Findings Committee white paper (J Am Bam Radiol 2018): Any incidental renal lesion less than 1 cm or classified as too small to characterize, or any incidental cystic renal lesion characterized as simple-appearing, is likely benign. No follow-up imaging is recommended for these lesions per consensus recommendations based on imaging criteria. Laboratory Results WBC 7.90 10^3/uL (3.29-11.43) 09/07/24 16:02 RBC 5.14 10^6/uL (3.85-5.65) 09/07/24 16:02 Hgb 15.50 g/dL (11.27-16.99) 09/07/24 16:02 Hct 46.8 % (37-53) 09/07/24 16:02 MCV 91.1 fl (82-101) 09/07/24 16:02 MCH 30.2 pg (27-33) 09/07/24 16:02 MCHC 33.1 g/dL (30-55) 09/07/24 16:02 RDW 12.7 % (12.1-15.1) 09/07/24 16:02 Plt Count 215 10^3/cmm (157-399) 09/07/24 16:02 MPV 9.4 fL (7.4-10.4) 09/07/24 16:02 Neut % (Auto) 69.3 % 09/07/24 16:02 Lymph % (Auto) 17.8 % 09/07/24 16:02 [place] % (Auto) 7.1 % 09/07/24 16:02 Eos % (Auto) 5.1 % 09/07/24 16:02 Baso % (Auto) 0.4 % 09/07/24 16:02 Neut # (Auto) 5.48 10^3/uL (1.8-7.7) 09/07/24 16:02 Lymph # (Auto) 1.4 10^3/uL (0.8-4.8) 09/07/24 16:02 [place] # (Auto) 0.6 10^3/uL (0.2-0.9) 09/07/24 16:02 Eos # (Auto) 0.4 10^3/uL (0.0-0.8) 09/07/24 16:02 Baso # (Auto) 0.0 10^3/uL (0.0-0.1) 09/07/24 16:02 Nucleated RBC % (auto) 0 % 09/07/24 16:02 Nucleated RBCs # 0.0 /100WBC 09/07/24 16:02 Sodium 138 mmol/L (136-145) 09/07/24 16:02 Potassium 4.4 mmol/L (3.5-5.1) 09/07/24 16:02 Chloride 104 mmol/L (98-107) 09/07/24 16:02 Carbon Dioxide 29 mmol/L (22-29) 09/07/24 16:02 Anion Gap 9.4 (5-19) 09/07/24 16:02 BUN 25 mg/dL (8-23) H 09/07/24 16:02 Creatinine 0.7 mg/dL (0.7-1.2) 09/07/24 16:02 GFR Calculation 112.1 mL/min (90-130) 09/07/24 16:02 Glucose 115 mg/dL (65-115) 09/07/24 16:02 Calculated Osmolality 291 mOsm/kg (285-295) 09/07/24 16:02 Calcium 8.2 mg/dL (8.5-10.5) L 09/07/24 16:02 Total Bilirubin 0.3 mg/dL (0.15-1.2) 09/07/24 16:02 AST 22 U/L (0-40) 09/07/24 16:02 ALT 19 U/L (0-41) 09/07/24 16:02 Alkaline Phosphatase 91 U/L (40-130) 09/07/24 16:02 Total Protein 6.0 g/dL (6.6-8.7) L 09/07/24 16:02 Albumin 3.5 g/dL (3.5-5.2) 09/07/24 16:02 Globulin 2.5 g/dL (1.3-4.6) 09/07/24 16:02 Urine Color Yellow (Yellow) 09/07/24 17:51 Urine Appearance Clear (CLEAR) 09/07/24 17:51 Urine pH 7.5 (5-7) 09/07/24 17:51 Ur Specific [place] 1.057 (1.005-1.030) H 09/07/24 17:51 Urine Protein Negative (Negative) 09/07/24 17:51 Urine Glucose (UA) Negative (Normal) 09/07/24 17:51 Urine Ketones Negative (Negative) 09/07/24 17:51 Urine Blood Negative (Negative) 09/07/24 17:51 Urine Nitrate Negative (Negative) 09/07/24 17:51 Urine Bilirubin Negative (Negative) 09/07/24 17:51 Urine Urobilinogen 1.0 mg/dL (Negative) 09/07/24 17:51 Ur Leukocyte Esterase 1+ (Negative) A 09/07/24 17:51 Urine RBC 0-4 /hpf (0-2) H 09/07/24 17:51 Urine WBC 51-100 /hpf (0-5) H 09/07/24 17:51 Ur Squamous Epith Cells 0-4 /hpf (0-5) H 09/07/24 17:51 Amorphous Sediment 1+ /hpf 09/07/24 17:51 Urine Bacteria None /hpf (NONE) 09/07/24 17:51 Urine Mucus None /hpf 09/07/24 17:51 Urine Yeast 2+ /hpf H 09/07/24 17:51 Discharge Plan Discharge Patient Disposition: Home Clinical Impression: Inguinal hernia, Urinary tract infection Condition: Stable Prescriptions: New cefdinir 300 mg capsule 300 mg PO BID 7 Days Qty: 14 0RF No Action aspirin 81 mg tablet,delayed release (DR/EC) 81 mg PO QAM loperamide [Imodium A-D] 2 mg tablet 2 mg PO Q4H PRN (Reason: loose stools) Qty: 30 2RF Rx Instructions: one tab after each loose stool until symptoms controlled; don't exceed 8 mg per 24 hrs atenolol 50 mg tablet 50 mg PO QAM gabapentin 300 mg capsule 300 mg PO BID sildenafil 50 mg tablet 50 mg PO DAILY PRN (Reason: Sexual Activity) Rx Instructions: administer 30 minutes to 4 hours before activity/1 tab broken in half tamsulosin [Flomax] 0.4 mg capsule 0.4 mg PO .twice daily Qty: 60 0RF Rx Instructions: dose increase amoxicillin 875 mg tablet 875 mg PO BID Qty: 20 0RF oxycodone 5 mg tablet 5 mg PO Q8H PRN (Reason: pain) 30 Days Qty: 90 0RF prochlorperazine maleate [Compazine] 10 mg tablet 10 mg PO Q4H PRN (Reason: Mild Nausea) Qty: 30 3RF meloxicam 7.5 mg tablet 7.5 mg PO QAM Discharge Orders: Discharge ED (Routine); Ordered 09/07/24 Ordered By: Marizol Lim Referrals: Homero Nolan [Referring] - 4-7 days (Please call for an appointment with Dr. Nolan. Need to follow-up on thickened bladder wall and urinary tract infection) Law Fields DO [Physician] - 4-7 days (Please call for an appointment with Dr. Fields. He will be able to treat you for your hernia.) Jade Adamson, DENISE [Primary Care Provider] - Discharge Diet: Usual diet Discharge Activity: Increase activity as tolerated Patient Instructions: Urinary Tract Infection in Men (ED), Inguinal Hernia (ED), Opioid Safety, Pain Management Activity Restrictions/Additional Instructions: Thank you for choosing [facility] for your healthcare needs today. Please realize this is an emergency room and that we are providing you with a medical screening exam and this may not be complete and all inclusive of all the testing and or work up that you may need to determine your ailment or severity of your illness. You have been screened and evaluated and felt safe for discharge. Health conditions do change or evolve sometimes and as such it is important that you follow up with your Primary Doctor to be re checked, 3-5 days is a general good time frame for follow up. You are always welcome to return to the ED for re assessment if your symptoms are worsening or you have new concerns Coding Level of Care Code ED Career And Technology Education Teacher for Chucho Fwrodriguez Documented by User: Marizol Lim MD 09/07/24 18:38 HPI - Abdominal Pain 2 General: Chief Complaint: Abdominal Pain Stated Complaint: RLQ pain Time Seen by Provider: 09/07/24 15:45 Related Data Home Medications Medication Instructions Recorded Confirmed atenolol 50 mg tablet 50 mg PO QAM 07/31/23 11/21/23 gabapentin 300 mg capsule 300 mg PO BID 07/31/23 11/21/23 aspirin 81 mg tablet,delayed 81 mg PO QAM 08/15/23 11/21/23 release sildenafil 50 mg tablet 50 mg PO DAILY PRN Sexual Activity 08/26/23 11/21/23 meloxicam 7.5 mg tablet 7.5 mg PO QAM 08/30/23 11/21/23 Previous Rx's Medication Instructions Recorded prochlorperazine maleate 10 mg 10 mg PO Q4H PRN Mild Nausea #30 08/08/23 tablet (Compazine) tabs amoxicillin 875 mg tablet 875 mg PO BID #20 tabs 09/25/23 tamsulosin 0.4 mg capsule (Flomax) 0.4 mg PO .twice daily #60 caps 09/25/23 oxycodone 5 mg tablet 5 mg PO Q8H PRN pain 30 days #90 11/01/23 tabs loperamide 2 mg tablet (Imodium 2 mg PO Q4H PRN loose stools #30 11/21/23 A-D) tabs cefdinir 300 mg capsule 300 mg PO BID 7 days #14 caps 09/07/24 Allergies Allergy/AdvReac Type Severity Reaction Status Date / Time No Known Allergies Allergy Verified 11/21/23 10:03 PFSH ED 2 PFSH: Medical History Melanoma Family History Mother Anesthesia complication Cancer Dementia Family/Other Cancer uncle on throat cancer Family/Other Cancer niece had blood cancer Father Stroke Denies family history of Diabetes CAD (coronary artery disease) Clotting disorder Hyperlipidemia Psychiatric illness Chronic kidney disease (CKD) Suicide Bleeding disorder Family history of premature coronary artery disease Lung disease Hypertension Social History Smoking and tobacco/nicotine status: current every day tobacco/nicotine user cigarettes Packs smoked per day: 0.25 Years cigarettes smoked: 50 [ Other cigarette details: smoked since 1972/currently down to 3 cigarrettes daily] Course 2 Vital Signs: Vital signs: Vital Signs Temperature 98.1 F 09/07/24 15:38 Pulse Rate 52 L 09/07/24 19:42 Respiratory Rate 18 09/07/24 17:54 Blood Pressure 167/100 09/07/24 19:42 Pulse Oximetry 96 09/07/24 19:42 Oxygen Delivery Me thod Room Air 09/07/24 18:51 MDM - Abdominal Pain Medical Decision Making Patient presents with abdominal pain and hernia that he cannot reduce today. The hernia has been here for a while. Results of CT scan were pending. Patient was placed Trendelenburg and given pain meds. Patient was transitioned me at shift change. Awaiting CT results. Possible reduction of hernia. Also lab work was still pending. Reexamination: 1 into the room the patient is sleeping soundly. He is in Trendelenburg position. He has reduced the hernia himself. Discussed that it has been coming out more often. He also has been having some pelvic pain and he feels like might be gas. CT of the abdomen pelvis: No acute findings. He has bilateral hydroceles. Mild bladder wall thickening. Hernia is present again. This was present a year ago on a CT scan. He says the hernia has been present for a long time but he can usually reduce it and usually does not have quite this much pain. No evidence of strangulation. There is also a necrotic mass seen on CT. He said he was being treated for cancer. This is improved as well. Consultation: I spoke with Dr. Fields who is on-call for surgery. He will see the patient in clinic as this can be done not emergently. As the patient has reduced it. Assessment and plan: Urinary tract infection Inguinal hernia ?IV morphine Trendelenburg and reduce. ? IV Rocephin - Discharged home - Discussed plan with patient. Answered any questions. - Evaluation and treatment of this problem were appropriate in the emergency setting. Lab Data 09/07/24 16:02 09/07/24 16:02 Labs/Radiology: Radiology Impressions Abdomen/Pelvis CT 09/07/24 15:46 IMPRESSION: 1. Stable diffuse, mild bladder wall thickening with a trabeculated appearance of the bladder wall. Findings suggest sequela of chronic outlet obstruction. 2. Large right hydrocele, increased in size. Stable small left hydrocele. 3. Stable fat containing right inguinal hernia. No evidence for strangulation. 4. Increased fecal content in the colon. 5. Decrease in size of a necrotic mass in the posterior left flank at the level of the L2 vertebral body. 6. Incidental/nonacute findings are listed in the report. COMMENTS: Consistent with the [employer]'s Incidental Findings Committee white paper (J [employer] Bam [employer]iol 2018): Any incidental renal lesion less than 1 cm or classified as too small to characterize, or any incidental cystic renal lesion characterized as simple-appearing, is likely benign. No follow-up imaging is recommended for these lesions per consensus recommendations based on imaging criteria. Laboratory Results WBC 7.90 10^3/uL (3.29-11.43) 09/07/24 16: RBC 5.14 10^6/uL (3.85-5.65) 09/07/24 16:02 Hgb 15.50 g/dL (11.27-16.99) 09/07/24 16:02 Hct 46.8 % (37-53) 09/07/24 16: MCV 91.1 fl (82-101) 09/07/24 16:02 MCH 30.2 pg (27-33) 09/07/24 16:02 MCHC 33.1 g/dL (30-55) 09/07/24 16:02 RDW 12.7 % (12.1-15.1) 09/07/24 16:02 Plt Count 215 10^3/cmm (157-399) 09/07/24 16:02 MPV 9.4 fL (7.4-10.4) 09/07/24 16:02 Neut % (Auto) 69.3 % 09/07/24 16:02 Lymph % (Auto) 17.8 % 09/07/24 16:02 [place] % (Auto) 7.1 % 09/07/24 16:02 Eos % (Auto) 5.1 % 09/07/24 16:02 Baso % (Auto) 0.4 % 09/07/24 16:02 Neut # (Auto) 5.48 10^3/uL (1.8-7.7) 09/07/24 16:02 Lymph # (Auto) 1.4 10^3/uL (0.8-4.8) 09/07/24 16:02 [place] # (Auto) 0.6 10^3/uL (0.2-0.9) 09/07/24 16:02 Eos # (Auto) 0.4 10^3/uL (0.0-0.8) 09/07/24 16:02 Baso # (Auto) 0.0 10^3/uL (0.0-0.1) 09/07/24 16:02 Nucleated RBC % (auto) 0 % 09/07/24 16:02 Nucleated RBCs # 0.0 /100WBC 09/07/24 16:02 Sodium 138 mmol/L (136-145) 09/07/24 16:02 Potassium 4.4 mmol/L (3.5-5.1) 09/07/24 16:02 Chloride 104 mmol/L (98-107) 09/07/24 16:02 Carbon Dioxide 29 mmol/L (22-29) 09/07/24 16:02 Anion Gap 9.4 (5-19) 09/07/24 16:02 BUN 25 mg/dL (8-23) H 09/07/24 16:02 Creatinine 0.7 mg/dL (0.7-1.2) 09/07/24 16:02 GFR Calculation 112.1 mL/min (90-130) 09/07/24 16:02 Glucose 115 mg/dL (65-115) 09/07/24 16:02 Calculated Osmolality 291 mOsm/kg (285-295) 09/07/24 16:02 Calcium 8.2 mg/dL (8.5-10.5) L 09/07/24 16:02 Total Bilirubin 0.3 mg/dL (0.15-1.2) 09/07/24 16:02 AST 22 U/L (0-40) 09/07/24 16:02 ALT 19 U/L (0-41) 09/07/24 16:02 Alkaline Phosphatase 91 U/L (40-130) 09/07/24 16:02 Total Protein 6.0 g/dL (6.6-8.7) L 09/07/24 16:02 Albumin 3.5 g/dL (3.5-5.2) 09/07/24 16:02 Globulin 2.5 g/dL (1.3-4.6) 09/07/24 16:02 Urine Color Yellow (Yellow) 09/07/24 17:51 Urine Appearance Clear (CLEAR) 09/07/24 17:51 Urine pH 7.5 (5-7) 09/07/24 17:51 Ur Specific [place] 1.057 (1.005-1.030) H 09/07/24 17:51 Urine Protein Negative (Negative) 09/07/24 17:51 Urine Glucose (UA) Negative (Normal) 09/07/24 17:51 Urine Ketones Negative (Negative) 09/07/24 17:51 Urine Blood Negative (Negative) 09/07/24 17:51 Urine Nitrate Negative (Negative) 09/07/24 17:51 Urine Bilirubin Negative (Negative) 09/07/24 17:51 Urine Urobilinogen 1.0 mg/dL (Negative) 09/07/24 17:51 Ur Leukocyte Esterase 1+ (Negative) A 09/07/24 17:51 Urine RBC 0-4 /hpf (0-2) H 09/07/24 17:51 Urine WBC 51-100 /hpf (0-5) H 09/07/24 17:51 Ur Squamous Epith Cells 0-4 /hpf (0-5) H 09/07/24 17:51 Amorphous Sediment 1+ /hpf 09/07/24 17:51 Urine Bacteria None /hpf (NONE) 09/07/24 17:51 Urine Mucus None /hpf 09/07/24 17:51 Urine Yeast 2+ /hpf H 09/07/24 17:51 All radiology interpretation(s) finalized by discharge Discharge Plan Discharge Patient Disposition: Home Clinical Impression: Inguinal hernia, Urinary tract infection Condition: Stable Prescriptions: New cefdinir 300 mg capsule 300 mg PO BID 7 Days Qty: 14 0RF No Action aspirin 81 mg tablet,delayed release (DR/EC) 81 mg PO QAM loperamide [Imodium A-D] 2 mg tablet 2 mg PO Q4H PRN (Reason: loose stools) Qty: 30 2RF Rx Instructions: one tab after each loose stool until symptoms controlled; don't exceed 8 mg per 24 hrs atenolol 50 mg tablet 50 mg PO QAM gabapentin 300 mg capsule 300 mg PO BID sildenafil 50 mg tablet 50 mg PO DAILY PRN (Reason: Sexual Activity) Rx Instructions: administer 30 minutes to 4 hours before activity/1 tab broken in half tamsulosin [Flomax] 0.4 mg capsule 0.4 mg PO .twice daily Qty: 60 0RF Rx Instructions: dose increase amoxicillin 875 mg tablet 875 mg PO BID Qty: 20 0RF oxycodone 5 mg tablet 5 mg PO Q8H PRN (Reason: pain) 30 Days Qty: 90 0RF prochlorperazine maleate [Compazine] 10 mg tablet 10 mg PO Q4H PRN (Reason: Mild Nausea) Qty: 30 3RF meloxicam 7.5 mg tablet 7.5 mg PO QAM Discharge Orders: Discharge ED (Routine); Ordered 09/07/24 Ordered By: Marizol Lim Referrals: Homero Nolan [Referring] - 4-7 days (Please call for an appointment with Dr. Nolan. Need to follow-up on thickened bladder wall and urinary tract infection) Law Fields DO [Physician] - 4-7 days (Please call for an appointment with Dr. Fields. He will be able to treat you for your hernia.) Jade Adamson, DENISE [Primary Care Provider] - Discharge Diet: Usual diet Discharge Activity: Increase activity as tolerated Patient Instructions: Urinary Tract Infection in Men (ED), Inguinal Hernia (ED), Opioid Safety, Pain Management Activity Restrictions/Additional Instructions: Thank you for choosing [facility] for your healthcare needs today. Please realize this is an emergency room and that we are providing you with a medical screening exam and this may not be complete and all inclusive of all the testing and or work up that you may need to determine your ailment or severity of your illness. You have been screened and evaluated and felt safe for discharge. Health conditions do change or evolve sometimes and as such it is important that you follow up with your Primary Doctor to be re checked, 3-5 days is a general good time frame for follow up. You are always welcome to return to the ED for re assessment if your symptoms are worsening or you have new concerns Coding Level of Care Code ED Career And Technology Education Teacher for Chucho Amado
[2024-09-07 16:32] LABS: Albumin Level 3.5 g/dL (3.5-5.2); Alkaline Phosphatase 91 U/L (40-130); Anion Gap 9.4 (5-19); Aspartate Amino Transferase 22 U/L (0-40); Blood Urea Nitrogen 25 mg/dL (8-23); Calcium 8.2 mg/dL (8.5-10.5); Carbon Dioxide 29 mmol/L (22-29); Chloride 104 mmol/L (98-107); Creatinine Clr Calc Pharmacy 89.8555; Globulin 2.5 g/dL (1.3-4.6); Glomerular Filtration Rate 112.1 mL/min (90-130); Glucose 115 mg/dL (65-115); Osmolality Calculated 291 mOsm/kg (285-295); Potassium 4.4 mmol/L (3.5-5.1); Sodium 138 mmol/L (136-145); Total Bilirubin 0.3 mg/dL (0.15-1.2)
[2024-09-07 16:54] LABS: Alanine Aminotransferase 19 U/L (0-41)
[2024-09-07] MEDS: iohexol 350 mg/mL 500 mL Btl (per mL) IV (16:56)
[2024-09-07] MEDS: ondansetron 2 mg/ML SDV 2 mL 4 MG IVP (17:53)
[2024-09-07] MEDS: morphine 4 mg/mL SDV 1 mL IVP (17:54)
[2024-09-07 17:58] LABS: Bilirubin Urine Negative (Negative); Blood Urine Negative (Negative); Glucose Urine UA Negative (Normal); Ketones Urine Negative (Negative); Leukocyte Esterase Urine 1+ (Negative); Nitrate Urine Negative (Negative); Protein Urine Negative (Negative); Urine Appearance Clear (CLEAR); Urine Color Yellow (Yellow); pH Urine 7.5 (5-7)
[2024-09-07 18:01] LABS: Add Urine Microscopic? YES
[2024-09-07 18:18] LABS: Specific Gravity, Urine 1.057 (1.005-1.030); UA Slide Review UA Slide Review Perf
[2024-09-07 18:20] LABS: UA Manual Slide Review YES
[2024-09-07 18:21] LABS: Add Urine Culture? Yes; Amorphous Sediment Urine 1+ /hpf; RBC Urine 0-4 /hpf (0-2); Squamous Epithelial Cell Urine 0-4 /hpf (0-5); WBC Urine 51-100 /hpf (0-5)
[2024-09-07] MEDS: cefTRIAXone 1,000 mg SDV 1000 MG IVP (18:50)
== END 2024-09-07 19:44 | disposition home or self-care (01) ==
PROVIDERS: Family Medicine; Emergency Provider Emergency Medicine; PCP Nurse Practitioner
DX: N39.0 Urinary tract infection, site not specified (principal); K40.90 Unilateral inguinal hernia, without obstruction or gangrene, not specified as recurrent; F17.210 Nicotine dependence, cigarettes, uncomplicated
CPT/HCPCS: 36415; 74177; 80053; 81001; 85025; 87086; 96374; 96375; 99285; J0696; J2270; J2405

== ENCOUNTER → 2024-09-22 08:44 | Outpatient (BNVA) | payer OTHER, SELFPAY | PROVIDERS: PCP Nurse Practitioner; Referring Provider Nurse Practitioner; Visit Provider Surgery | DX: N43.3 Hydrocele, unspecified (principal); K40.90 Unilateral inguinal hernia, without obstruction or gangrene, not specified as recurrent | CPT/HCPCS: 99214 ==

== ENCOUNTER 2024-10-30 19:24 | Emergency (ER) | payer OTHER, MEDICARE, SELFPAY ==
[2024-10-30 19:27] VITALS: BP 158/103; PULSE 72; RESP 18; TEMP 36.6; O2SAT 96; BMI 30.4
--- NOTE | 2024-10-30 19:48 | ED_ITS ---
HPI - Abdominal Pain 2 General: Chief Complaint: Abdominal Pain Stated Complaint: abdomen pain Time Seen by Provider: 10/30/24 19:35 Source: patient Mode of arrival: ambulatory Limitations: no limitations History of Present Illness: 69-year-old male states he been having l ower abdominal pain over the last day. States pain is diffuse in nature he does have a history of inguinal hernia. He rates his pain an 8 out of 10 he denies any vomiting or diarrhea. Associated Symptoms: Denies chills, diarrhea, fever(s), nausea and vomiting Related Data Home Medications Medication Instructions Recorded Confirmed atenolol 50 mg tablet 50 mg PO QAM 07/31/23 09/22/24 gabapentin 300 mg capsule 300 mg PO BID 07/31/23 09/22/24 aspirin 81 mg tablet,delayed 81 mg PO QAM 08/15/23 09/22/24 release sildenafil 50 mg tablet 50 mg PO DAILY PRN Sexual Activity 08/26/23 09/22/24 meloxicam 7.5 mg tablet 7.5 mg PO QAM 08/30/23 09/22/24 Previous Rx's Medication Instructions Recorded prochlorperazine maleate 10 mg 10 mg PO Q4H PRN Mild Nausea #30 08/08/23 tablet (Compazine) tabs tamsulosin 0.4 mg capsule (Flomax) 0.4 mg PO .twice daily #60 caps 09/25/23 oxycodone 5 mg tablet 5 mg PO Q8H PRN pain 30 days #90 11/01/23 tabs loperamide 2 mg tablet (Imodium 2 mg PO Q4H PRN loose stools #30 11/21/23 A-D) tabs Allergies Allergy/AdvReac Type Severity Reaction Status Date / Time No Known Allergies Allergy Verified 09/22/24 09:31 Review of Systems 2 Const: Denies: fever(s), chills, body aches or change in appetite ENMT: Denies: throat pain or dental pain Card: Denies: chest pain Resp: Denies: dyspnea GI: Reports: abdominal pain; Denies: nausea, vomiting or diarrhea Musc: Denies: neck pain or back pain Skin/Breast: Denies: rash Neuro: Denies: headache(s) PFSH ED 2 PFSH: Medical History Melanoma Family History Mother Anesthesia complication Cancer Dementia Family/Other Cancer uncle on throat cancer Family/Other Cancer niece had blood cancer Father Stroke Denies family history of Diabetes CAD (coronary artery disease) Clotting disorder Hyperlipidemia Psychiatric illness Chronic kidney disease (CKD) Suicide Bleeding disorder Family history of premature coronary artery disease Lung disease Hypertension Social History Smoking and tobacco/nicotine status: current every day tobacco/nicotine user cigarettes Packs smoked per day: 0.25 Years cigarettes smoked: 50 [ Other cigarette details: smoked since 1972/currently down to 3 cigarrettes daily] Physical Exam 2 Const: COMMON NORMALS: no acute distress, patient oriented x3 and healthy appearing HENMT: COMMON NORMALS: normocephalic and atraumatic HEAD & SCALP: n ormocephalic and atraumatic Neck/C-Spine: COMMON NORMALS: full ROM and supple Chest: COMMONS NORMALS: normal inspection of the chest Resp: COMMON NORMALS: normal respiratory effort Cardio: COMMON NORMALS: regular rate, regular rhythm and No murmurs present (Cardio) RATE: regular rate RHYTHM: regular rhythm GI: OTHER: Diffuse tenderness abdomen Extremity: COMMON NORMALS: normal to inspection and full ROM Neuro: COMMON NORMALS: patient oriented x3, moves all extremities and no focal motor deficits Psych: COMMON NORMALS: mental status grossly normal, Normal thought process present and cooperative THOUGHT PROCESS: Normal thought process present Skin: COMMON NORMALS: no rashes or lesions noted and no wounds GENERAL SKIN EXAM: no rashes or lesions noted Procedures Procedural Sedation Presedation Evaluation: hernia reduction ASA Class: II Time of Last PO Intake: 14:00 Preparation: donor services technician applied and pulse oximeter IV Propofol dose (mg): 70 Patient Tolerated Procedure: well Complications: none Course 2 Vital Signs: Vital signs: Vital Signs Temperature 98 F 10/30/24 19:27 Pulse Rate 63 10/30/24 21:28 Respiratory Rate 16 10/30/24 21:34 Blood Pressure 168/98 10/30/24 21:28 Pulse Oximetry 100 10/30/24 21:34 Oxygen Delivery Me thod Room Air 10/30/24 21:28 MDM - Abdominal Pain Medical Decision Making Patient presents with a right inguinal hernia I did sedate patient was able to reduce it successfully here. He is to follow-up with the surgeon [place] as scheduled he is stable for discharge. Medical Records I reviewed the patient's medical records. Lab Data I reviewed the patient's lab results. 10/30/24 20:52 10/30/24 20:52 Labs/Radiology: Radiology Impressions Abdomen/Pelvis CT 10/30/24 19:55 IMPRESSION: 1. Large right inguinal hernia has increased in size from 09/07/2024 and contains small bowel with transition point and presumed obstruction of the neck of the hernia. Upstream fluid-filled mildly dilated bowel. 2. Large volume colonic stool retention. 3. Stable left flank subcutaneous soft tissue mass compared to 09/07/2024 in the setting of reported melanoma. Other chronic and incidental findings detailed above. ADDENDUM: 10/30/[id number] COMMENT: THIS REPORT CONTAINS FINDINGS THAT MAY BE CRITICAL TO PATIENT CARE. The exam findings were verbally communicated by me to ARACELI Whiteside via telephone conference at 9:12 PM TIMBER TREATING TANK OPERATOR on 10/30/2024. The findings were acknowledged and understood. Laboratory Results WBC 12.68 10^3/uL (3.29-11.43) H 10/30/24 20:52 RBC 5.25 10^6/uL (3.85-5.65) 10/30/24 20:52 Hgb 15.40 g/dL (11.27-16.99) 10/30/24 20:52 Hct 47.6 % (37-53) 10/30/24 20:52 MCV 90.7 fl (82-101) 10/30/24 20:52 MCH 29.3 pg (27-33) 10/30/24 20:52 MCHC 32.4 g/dL (30-55) 10/30/24 20:52 RDW 12.8 % (12.1-15.1) 10/30/24 20:52 Plt Count 205 10^3/cmm (157-399) 10/30/24 20:52 MPV 9.4 fL (7.4-10.4) 10/30/24 20:52 Neut % (Auto) 84.9 % 10/30/24 20:52 Lymph % (Auto) 7.1 % 10/30/24 20:52 [place] % (Auto) 5.8 % 10/30/24 20:52 Eos % (Auto) 1.5 % 10/30/24 20:52 Baso % (Auto) 0.4 % 10/30/24 20:52 Neut # (Auto) 10.77 10^3/uL (1.8-7.7) H 10/30/24 20:52 Lymph # (Auto) 0.9 10^3/uL (0.8-4.8) 10/30/24 20:52 [place] # (Auto) 0.7 10^3/uL (0.2-0.9) 10/30/24 20:52 Eos # (Auto) 0.2 10^3/uL (0.0-0.8) 10/30/24 20:52 Baso # (Auto) 0.1 10^3/uL (0.0-0.1) 10/30/24 20:52 Nucleated RBC % (auto) 0 % 10/30/24 20:52 Nucleated RBCs # 0.0 /100WBC 10/30/24 20:52 Sodium 139 mmol/L (136-145) 10/30/24 20:52 Potassium 4.4 mmol/L (3.5-5.1) 10/30/24 20:52 Chloride 104 mmol/L (98-107) 10/30/24 20:52 Carbon Dioxide 29 mmol/L (22-29) 10/30/24 20:52 Anion Gap 10.4 (5-19) 10/30/24 20:52 BUN 15 mg/dL (8-23) 10/30/24 20:52 Creatinine 0.7 mg/dL (0.7-1.2) 10/30/24 20:52 GFR Calculation 111.8 mL/min (90-130) 10/30/24 20:52 Glucose 101 mg/dL (65-115) 10/30/24 20:52 Calculated Osmolality 289 mOsm/kg (285-295) 10/30/24 20:52 Calcium 8.8 mg/dL (8.5-10.5) 10/30/24 20:52 Total Bilirubin 0.4 mg/dL (0.15-1.2) 10/30/24 20:52 AST 19 U/L (0-40) 10/30/24 20:52 ALT 16 U/L (0-41) 10/30/24 20:52 Alkaline Phosphatase 96 U/L (40-130) 10/30/24 20:52 Total Protein 6.8 g/dL (6.6-8.7) 10/30/24 20:52 Albumin 3.6 g/dL (3.5-5.2) 10/30/24 20:52 Globulin 3.2 g/dL (1.3-4.6) 10/30/24 20:52 Lipase 23 U/L (13-60) 10/30/24 20:52 All radiology interpretation(s) finalized by discharge Discharge Plan Discharge Patient Disposition: Home Clinical Impression: Hernia, inguinal, right Condition: Stable Prescriptions: No Action aspirin 81 mg tablet,delayed release (DR/EC) 81 mg PO QAM loperamide [Imodium A-D] 2 mg tablet 2 mg PO Q4H PRN (Reason: loose stools) Qty: 30 2RF Rx Instructions: one tab after each loose stool until symptoms controlled; don't exceed 8 mg per 24 hrs atenolol 50 mg tablet 50 mg PO QAM gabapentin 300 mg capsule 300 mg PO BID sildenafil 50 mg tablet 50 mg PO DAILY PRN (Reason: Sexual Activity) Rx Instructions: administer 30 minutes to 4 hours before activity/1 tab broken in half tamsulosin [Flomax] 0.4 mg capsule 0.4 mg PO .twice daily Qty: 60 0RF Rx Instructions: dose increase oxycodone 5 mg tablet 5 mg PO Q8H PRN (Reason: pain) 30 Days Qty: 90 0RF prochlorperazine maleate [Compazine] 10 mg tablet 10 mg PO Q4H PRN (Reason: Mild Nausea) Qty: 30 3RF meloxicam 7.5 mg tablet 7.5 mg PO QAM Discharge Orders: Discharge ED (Routine); Ordered 10/30/24 Ordered By: Araceli Gutiérrez Referrals: Jade Adamson FNP [Primary Care Provider] - Discharge Diet: Advance as tolerated Discharge Activity: Resume usual activity Patient Instructions: Inguinal Hernia (ED) Coding Level of Care Code ED Hazardous Substances Scientist for [facility]uch[facility] Amado
--- NOTE | 2024-10-30 19:55 | CTR_ITS ---
PROCEDURE INFORMATION: Exam: CT Abdomen And Pelvis With Contrast Exam date and time: 10/30/2024 8:13 PM Age: 69 years old Clinical indication: Abdominal pain; Localized; Right lower quadrant (rlq); Patient HX: C/O rlq/groin pain. History of inguinal hernia and metastatic melanoma. ; Additional info: Abd pain TECHNIQUE: Imaging protocol: Computed tomography of the abdomen and pelvis with contrast. Radiation optimization: All CT scans at this facility use at least one of these dose optimization techniques: automated exposure control; mA and/or kV adjustment per patient size (includes targeted exams where dose is matched to clinical indication); or iterative reconstruction. Contrast material: OMNI 350; Contrast volume: 80 ml; Contrast route: INTRAVENOUS (IV); COMPARISON: CT abdomen pelvis w con* [id number] 09/07/2024 4:51 PM RADIATION DOSE METRICS: Total DLP (mGy-cm): 635.96 FINDINGS: Lungs: [id number] atelectatic change and scarring posterior lower lobes bilaterally Liver: Normal. No mass. Gallbladder and biliary ducts: Normal. No calcified stones. No ductal dilation. Pancreas: Normal. No ductal dilation. Spleen: Normal. No splenomegaly. Adrenal glands: Normal. No mass. Kidneys and ureters: A few hypodense renal lesions up to 1 cm are too small to characterize but stable and likely due to cysts on a statistical basis. Stomach and bowel: Large volume colonic stool retention is again demonstrated. Transition point of small bowel in the neck of the right inguinal hernia with mild fluid-filled small bowel dilatation proximally. Appendix: No evidence of appendicitis. Intraperitoneal space: Unremarkable. No free air. No significant fluid collection. Vasculature: Unremarkable. No abdominal aortic aneurysm. Lymph nodes: Unremarkable. No enlarged lymph nodes. Urinary bladder: Moderate diffuse urinary bladder wall thickening and distension again noted. A 0.4 cm mobile stone is present in the right bladder base, previously located in the left base. Reproductive: Prostate is nonenlarged. Bones/joints: Advanced multilevel degenerative thoracolumbar endplate osteophytosis and disc space narrowing and sclerosis. Mild rotary scoliosis. Unilateral L5 pars defect. Grade 1 anterolisthesis of L5 over S1. Soft tissues: A complex hyperdense ovoid nodular lesion with central hypodensity in the left flank up to 6.1 x 4 cm (series 3, image 32), unchanged from 09/07/2020. Cgeezlbi-[id number]-fukgh right inguinal hernia containing small amount of fluid and nondilated small bowel. Small left inguinal fat containing hernia. CT/CT abdomen pelvis w con* [id number] IMPRESSION: 1. Large right inguinal hernia has increased in size from 09/07/2024 and contains small bowel with transition point and presumed obstruction of the neck of the hernia. Upstream fluid-filled mildly dilated bowel. 2. Large volume colonic stool retention. 3. Stable left flank subcutaneous soft tissue mass compared to 09/07/2024 in the setting of reported melanoma. Other chronic and incidental findings detailed above.
[2024-10-30] MEDS: iohexol 350 mg/mL 500 mL Btl (per mL) IV (20:13)
[2024-10-30 20:58] LABS: Basophils # 0.1 10^3/uL (0.0-0.1); Basophils % 0.4 %; Eosinophils # 0.2 10^3/uL (0.0-0.8); Eosinophils % 1.5 %; Hematocrit 47.6 % (37-53); Lymphocytes # 0.9 10^3/uL (0.8-4.8); Lymphocytes % 7.1 %; Mean Corpuscular HGB Conc 32.4 g/dL (30-55); Mean Corpuscular Hemoglobin 29.3 pg (27-33); Mean Corpuscular Volume 90.7 fl (82-101); Mean Platelet Volume 9.4 fL (7.4-10.4); Monocytes # 0.7 10^3/uL (0.2-0.9); Monocytes % 5.8 %; Neutrophils # 10.77 10^3/uL (1.8-7.7); Neutrophils % 84.9 %; Nucleated Red Blood Cells % 0 %; Platelet Count 205 10^3/cmm (157-399); Red Blood Count 5.25 10^6/uL (3.85-5.65); Red Cell Distribution Width 12.8 % (12.1-15.1); White Blood Count 12.68 10^3/uL (3.29-11.43)
[2024-10-30 21:15] LABS: Alanine Aminotransferase 16 U/L (0-41); Albumin Level 3.6 g/dL (3.5-5.2); Alkaline Phosphatase 96 U/L (40-130); Anion Gap 10.4 (5-19); Aspartate Amino Transferase 19 U/L (0-40); Blood Urea Nitrogen 15 mg/dL (8-23); Calcium 8.8 mg/dL (8.5-10.5); Carbon Dioxide 29 mmol/L (22-29); Chloride 104 mmol/L (98-107); Creatinine Clr Calc Pharmacy 95.3165; Globulin 3.2 g/dL (1.3-4.6); Glomerular Filtration Rate 111.8 mL/min (90-130); Glucose 101 mg/dL (65-115); Lipase 23 U/L (13-60); Osmolality Calculated 289 mOsm/kg (285-295); Potassium 4.4 mmol/L (3.5-5.1); Sodium 139 mmol/L (136-145); Total Bilirubin 0.4 mg/dL (0.15-1.2); Total Protein 6.8 g/dL (6.6-8.7)
[2024-10-30 21:28] VITALS: BP 168/98; PULSE 63; O2SAT 100
[2024-10-30] MEDS: LORazepam 2 mg/mL INJ 1 mL 1 MG IVP (21:33)
[2024-10-30 21:34] VITALS: RESP 16; O2SAT 100
[2024-10-30] MEDS: morphine 4 mg/mL SDV 1 mL IVP (21:34)
[2024-10-30 22:00] VITALS: BP 171/83; PULSE 71; O2SAT 100
[2024-10-30] MEDS: propofol 10 mg/mL SDV 20 mL 70 MG IVP (22:29)
--- NOTE | 2024-10-30 22:31 | PC.NURSE ---
Wasted 130 mg of propofol. Patient received 70 mg of propofol during concious sedation. Karl Denton RN witnessed me waste the 130 mg of propofol.
== END 2024-10-31 00:32 | disposition home or self-care (01) ==
PROVIDERS: Emergency Provider Emergency Medicine; PCP Nurse Practitioner
DX: K40.90 Unilateral inguinal hernia, without obstruction or gangrene, not specified as recurrent (principal); Z79.82 Long term (current) use of aspirin; F17.210 Nicotine dependence, cigarettes, uncomplicated
CPT/HCPCS: 36415; 74177; 80053; 83690; 85025; 96374; 96375; 99152; 99285; J2060; J2270; J2704

== ENCOUNTER 2024-11-17 15:55 | Emergency (ER) | payer OTHER, MEDICARE, SELFPAY ==
[2024-11-17] VITALS (8 sets, daily range): BP systolic 138–156; BP diastolic 101–119; PULSE 84–94; RESP 16–17; TEMP 36.6; O2SAT 93–98; BMI 27.3
--- NOTE | 2024-11-17 16:01 | XRR_ITS ---
PROCEDURE INFORMATION: Exam: XR Abdomen Exam date and time: 11/17/2024 4:13 PM Age: 69 years old Clinical indication: Abdominal pain; Additional info: Abd pain TECHNIQUE: Imaging protocol: Radiologic exam of the abdomen. Views: Frontal supine view of the abdomen. 1 View. COMPARISON: CT abdomen pelvis w con* [id number] 10/30/2024 8:13 PM FINDINGS: Tubes, catheters and devices: Tubing seen over the abdomen. Gastrointestinal tract: Moderate to severe constipation without bowel dilation indicate obstruction. Bones/joints: Multilevel degenerative disc space disease throughout the spine. XR/XR KUB [id number] IMPRESSION: 1. Moderate to severe constipation without bowel dilation indicate obstruction. 2. Tubing seen over the abdomen. 3. Multilevel degenerative disc space disease throughout the spine.
--- NOTE | 2024-11-17 16:13 | PC.PHAR ---
patient not very alert at this time he said he takes care of his own meds but when asked he just groans in pain.. [facility]. he was seen here on 10/30 so i will be using discharge packet to verify meds
--- NOTE | 2024-11-17 16:18 | W.ED.ABDPA2 ---
HPI - Abdominal Pain General: Chief Complaint: Abdominal Pain Stated Complaint: Abd pain Time Seen by Provider: 11/17/24 15:57 Source: patient and EMS Mode of arrival: EMS Limitations: no limitations History of Present Illness: 69-year-old male with a history of a right inguinal hernia causing chronic abdominal pain he states that he is seen here over a week ago and had the hernia reduced but states that it is now protruded again because edema pain has had some constipation he denies any vomiting or fever rates his pain a 9 out of 10 currently is worse with palpation. Associated Symptoms: Reports constipation; Denies chills, diarrhea, fever(s), nausea and vomiting Related Data Home Medications Medication Instructions Recorded Confirmed atenolol 50 mg tablet 50 mg PO QAM 07/31/23 11/17/24 gabapentin 300 mg capsule 300 mg PO BID 07/31/23 11/17/24 aspirin 81 mg tablet,delayed 81 mg PO QAM 08/15/23 11/17/24 release sildenafil 50 mg tablet 50 mg PO DAILY PRN Sexual Activity 08/26/23 11/17/24 meloxicam 7.5 mg tablet 7.5 mg PO QAM 08/30/23 11/17/24 Previous Rx's Medication Instructions Recorded prochlorperazine maleate 10 mg 10 mg PO Q4H PRN Mild Nausea #30 08/08/23 tablet (Compazine) tabs tamsulosin 0.4 mg capsule (Flomax) 0.4 mg PO .twice daily #60 caps 09/25/23 oxycodone 5 mg tablet 5 mg PO Q8H PRN pain 30 days #90 11/01/23 tabs loperamide 2 mg tablet (Imodium 2 mg PO Q4H PRN loose stools #30 11/21/23 A-D) tabs hydrocodone 5 mg-acetaminophen 325 1 tab PO Q6H PRN pain #14 tabs 11/17/24 mg tablet polyethylene glycol 3350 17 gram 17 g PO DAILY PRN constipation #14 11/17/24 oral powder packet (Miralax) ea Allergies Allergy/AdvReac Type Severity Reaction Status Date / Time No Known Allergies Allergy Verified 09/22/24 09:31 Review of Systems Const: Denies: fever(s), chills, body aches or change in appetite ENMT: Denies: throat pain or dental pain Card: Denies: chest pain Resp: Denies: dyspnea GI: Reports: abdominal pain and constipation; Denies: nausea, vomiting or diarrhea Musc: Denies: neck pain or back pain Skin/Breast: Denies: rash Neuro: Denies: headache(s) PFSH ED PFSH: Medical History Melanoma Family History Mother Anesthesia complication Cancer Dementia Family/Other Cancer uncle on throat cancer Family/Other Cancer niece had blood cancer Father Stroke Denies family history of Diabetes CAD (coronary artery disease) Clotting disorder Hyperlipidemia Psychiatric illness Chronic kidney disease (CKD) Suicide Bleeding disorder Family history of premature coronary artery disease Lung disease Hypertension Social History Smoking and tobacco/nicotine status: current every day tobacco/nicotine user cigarettes Packs smoked per day: 0.25 Years cigarettes smoked: 50 [ Other cigarette details: smoked since 1972/currently down to 3 cigarrettes daily] Physical Exam Const: COMMON NORMALS: no acute distress, patient oriented x3 and healthy appearing HENMT: COMMON NORMALS: normocephalic and atraumatic HEAD & SCALP: normocephalic and atraumatic Eye: COMMON NORMALS: conjunctivae normal CONJUNCTIVA: Yes conjunctivae normal Neck/C-Spine: COMMON NORMALS: full ROM and supple Chest: COMMONS NORMALS: normal inspection of the chest Resp: COMMON NORMALS: normal respiratory effort, No retractions, No use of accessory muscles and clear to auscultation bilaterally AUSCULTATION: clear to auscultation bilaterally Cardio: COMMON NORMALS: regular rate, regular rhythm and No murmurs present (Cardio) RATE: regular rate RHYTHM: regular rhythm GI: COMMON NORMALS: Normal to inspection, nondistended, normoactive bowel sounds present, Soft to palpation and no masses PALPATION: Yes Soft to palpation OTHER: Hernia noted right inguinal canal with tenderness Extremity: COMMON NORMALS: normal to inspection and full ROM Neuro: COMMON NORMALS: patient oriented x3, moves all extremities and no focal motor deficits Psych: COMMON NORMALS: mental status grossly normal, Normal thought process present and cooperative THOUGHT PROCESS: Normal thought process present Skin: COMMON NORMALS: no rashes or lesions noted and no wounds GENERAL SKIN EXAM: no rashes or lesions noted Procedures Procedural Sedation Indication: other (hernia reduction) ASA Class: II Time of Last PO Intake: 12:00 Preparation: manager cardiac cath applied IV Propofol dose (mg): 100 Complications: none Course Vital Signs: Vital signs: Vital Signs Temperature 97.9 F 11/17/24 15:59 Pulse Rate 87 11/17/24 18:31 Respiratory Rate 17 11/17/24 16:40 Blood Pressure 153/101 11/17/24 18:31 Pulse Oximetry 97 11/17/24 18:31 Oxygen Delivery Me thod Room Air 11/17/24 17:59 Oxygen Flow Rate 2 11/17/24 16:38 MDM - Abdominal Pain Medical Decision Making Patient presents here with the inguinal hernia was able to reduce it he is quite constipated did have a large bowel movement here CT shows no other acute findings he is stable for discharge follow-up as scheduled with his surgeon he is return if worsening he understands agrees to plan. Medical Records I reviewed the patient's medical records. Lab Data I reviewed the patient's lab results. 11/17/24 16:22 11/17/24 16:16 Labs/Radiology: Radiology Impressions KUB X-Ray 11/17/24 16:01 IMPRESSION: 1. Moderate to severe constipation without bowel dilation indicate obstruction. 2. Tubing seen over the abdomen. 3. Multilevel degenerative disc space disease throughout the spine. Abdomen/Pelvis CT 11/17/24 16:38 IMPRESSION: 1. Prominent fluid in the stomach and small bowel, please correlate for a gastroenteritis. 2. Bibasilar atelectasis. 3. Emphysematous changes. 4. Coronary artery atherosclerotic calcifications. 5. Hepatic steatosis. 6. Simple right kidney cyst, negative for follow-up advised. 7. Moderate 2 severe constipation. 8. Moderate to large amount of stool in the rectal vault, please correlate for fecal impaction. 9. Kpiwaffs-na-ijuww bilateral fat containing inguinal hernias with nonspecific fluid in the right inguinal canal. 10. Diffuse urinary bladder wall thickening may be due to chronic outflow obstruction, please correlate for cystitis. 11. Prostate gland is somewhat enlarged, please correlate clinically. 12. Left flank 5.6 cm soft tissue mass demonstrating solid and fluid components, stability is suggestive of benign process, please correlate with history and consider tissue sampling as clinically indicated as malignancy is a consideration. Laboratory Results WBC 15.82 10^3/uL (3.29-11.43) H 11/17/24 16:22 RBC 5.67 10^6/uL (3.85-5.65) H 11/17/24 16:22 Hgb 16.70 g/dL (11.27-16.99) 11/17/24 16:22 Hct 52.3 % (37-53) 11/17/24 16:22 MCV 92.2 fl (82-101) 11/17/24 16:22 MCH 29.5 pg (27-33) 11/17/24 16:22 MCHC 31.9 g/dL (30-55) 11/17/24 16:22 RDW 12.8 % (12.1-15.1) 11/17/24 16:22 Plt Count 257 10^3/cmm (157-399) 11/17/24 16:22 MPV 9.4 fL (7.4-10.4) 11/17/24 16:22 Neut % (Auto) 77.7 % 11/17/24 16:22 Lymph % (Auto) 15.9 % 11/17/24 16:22 [place] % (Auto) 4.8 % 11/17/24 16:22 Eos % (Auto) 0.8 % 11/17/24 16:22 Baso % (Auto) 0.4 % 11/17/24 16:22 Neut # (Auto) 12.30 10^3/uL (1.8-7.7) H 11/17/24 16:22 Lymph # (Auto) 2.5 10^3/uL (0.8-4.8) 11/17/24 16:22 [place] # (Auto) 0.8 10^3/uL (0.2-0.9) 11/17/24 16:22 Eos # (Auto) 0.1 10^3/uL (0.0-0.8) 11/17/24 16:22 Baso # (Auto) 0.1 10^3/uL (0.0-0.1) 11/17/24 16:22 Nucleated RBC % (auto) 0 % 11/17/24 16:22 Nucleated RBCs # 0.0 /100WBC 11/17/24 16:22 Sodium 137 mmol/L (136-145) 11/17/24 16:16 Potassium 4.1 mmol/L (3.5-5.1) 11/17/24 16:16 Chloride 102 mmol/L (98-107) 11/17/24 16:16 Carbon Dioxide 20 mmol/L (22-29) L 11/17/24 16:16 Anion Gap 19.1 (5-19) H 11/17/24 16:16 BUN 21 mg/dL (8-23) 11/17/24 16:16 Creatinine 1.0 mg/dL (0.7-1.2) 11/17/24 16:16 GFR Calculation 74.1 mL/min (90-130) L 11/17/24 16:16 Glucose 138 mg/dL (65-115) H 11/17/24 16:16 Calculated Osmolality 289 mOsm/kg (285-295) 11/17/24 16:16 Calcium 8.9 mg/dL (8.5-10.5) 11/17/24 16:16 Total Bilirubin 0.4 mg/dL (0.15-1.2) 11/17/24 16:16 AST 22 U/L (0-40) 11/17/24 16:16 ALT 20 U/L (0-41) 11/17/24 16:16 Alkaline Phosphatase 104 U/L (40-130) 11/17/24 16:16 Total Protein 6.7 g/dL (6.6-8.7) 11/17/24 16:16 Albumin 3.5 g/dL (3.5-5.2) 11/17/24 16:16 Globulin 3.2 g/dL (1.3-4.6) 11/17/24 16:16 Lipase 22 U/L (13-60) 11/17/24 16:16 All radiology interpretation(s) finalized by discharge Discharge Plan Discharge Patient Disposition: Home Clinical Impression: Abdominal pain, Inguinal hernia, Constipation Condition: Stable Prescriptions: New hydrocodone-acetaminophen 5-325 mg tablet 1 tab PO Q6H PRN (Reason: pain) Qty: 14 0RF polyethylene glycol 3350 [Miralax] 17 gram powder in packet 17 g PO DAILY PRN (Reason: constipation) Qty: 14 0RF No Action aspirin 81 mg tablet,delayed release (DR/EC) 81 mg PO QAM loperamide [Imodium A-D] 2 mg tablet 2 mg PO Q4H PRN (Reason: loose stools) Qty: 30 2RF Rx Instructions: one tab after each loose stool until symptoms controlled; don't exceed 8 mg per 24 hrs atenolol 50 mg tablet 50 mg PO QAM gabapentin 300 mg capsule 300 mg PO BID sildenafil 50 mg tablet 50 mg PO DAILY PRN (Reason: Sexual Activity) Rx Instructions: administer 30 minutes to 4 hours before activity/1 tab broken in half tamsulosin [Flomax] 0.4 mg capsule 0.4 mg PO .twice daily Qty: 60 0RF Rx Instructions: dose increase oxycodone 5 mg tablet 5 mg PO Q8H PRN (Reason: pain) 30 Days Qty: 90 0RF prochlorperazine maleate [Compazine] 10 mg tablet 10 mg PO Q4H PRN (Reason: Mild Nausea) Qty: 30 3RF meloxicam 7.5 mg tablet 7.5 mg PO QAM Discharge Orders: Discharge ED (Routine); Ordered 11/17/24 Ordered By: Paige Gutiérrez Referrals: Jade Adamson FNP [Primary Care Provider] - Discharge Diet: Advance as tolerated Discharge Activity: Resume usual activity Patient Instructions: Inguinal Hernia (ED), Abdominal Pain (ED), Opioid Safety Coding Level of Care Code ED Licensed Direct Entry Midwife for Chucho Amado
[2024-11-17 16:30] LABS: Basophils # 0.1 10^3/uL (0.0-0.1); Basophils % 0.4 %; Eosinophils # 0.1 10^3/uL (0.0-0.8); Eosinophils % 0.8 %; Hematocrit 52.3 % (37-53); Lymphocytes # 2.5 10^3/uL (0.8-4.8); Lymphocytes % 15.9 %; Mean Corpuscular HGB Conc 31.9 g/dL (30-55); Mean Corpuscular Hemoglobin 29.5 pg (27-33); Mean Corpuscular Volume 92.2 fl (82-101); Mean Platelet Volume 9.4 fL (7.4-10.4); Monocytes # 0.8 10^3/uL (0.2-0.9); Monocytes % 4.8 %; Neutrophils % 77.7 %; Nucleated Red Blood Cells % 0 %; Platelet Count 257 10^3/cmm (157-399); Red Blood Count 5.67 10^6/uL (3.85-5.65); Red Cell Distribution Width 12.8 % (12.1-15.1); White Blood Count 15.82 10^3/uL (3.29-11.43)
[2024-11-17] MEDS: propofol 10 mg/mL SDV 20 mL 100 MG IVP (16:38)
[2024-11-17] MEDS: ondansetron 2 mg/ML SDV 2 mL 4 MG IVP (16:38)
--- NOTE | 2024-11-17 16:38 | CTR_ITS ---
PROCEDURE INFORMATION: Exam: CT Abdomen And Pelvis With Contrast Exam date and time: 11/17/2024 4:56 PM Age: 69 years old Clinical indication: Abdominal pain; Generalized; Additional info: Abd pain/hernia TECHNIQUE: Imaging protocol: Computed tomography of the abdomen and pelvis with contrast. Radiation optimization: All CT scans at this facility use at least one of these dose optimization techniques: automated exposure control; mA and/or kV adjustment per patient size (includes targeted exams where dose is matched to clinical indication); or iterative reconstruction. Contrast material: OMNI 350; Contrast volume: 100 ml; Contrast route: INTRAVENOUS (IV); COMPARISON: CT abdomen pelvis w con* [id number] 10/30/2024 8:13 PM RADIATION DOSE METRICS: Total DLP (mGy-cm): 562.66 FINDINGS: Lungs: Bibasilar atelectasis. Emphysematous changes. Coronary arteries: Coronary artery atherosclerotic calcifications. Liver: Hepatic steatosis. Gallbladder and biliary ducts: Normal. No calcified stones. No ductal dilation. Pancreas: Normal. No ductal dilation. Spleen: Normal. No splenomegaly. Adrenal glands: Normal. No mass. Kidneys and ureters: Simple right kidney cyst, negative for follow-up advised. Stomach and bowel: Prominent fluid in the stomach and small bowel, please correlate for a gastroenteritis. Moderate to severe constipation. Moderate to large amount of stool in the rectal vault, please correlate for fecal impaction. Appendix: No evidence of appendicitis. Intraperitoneal space: Unremarkable. No free air. No significant fluid collection. Vasculature: Unremarkable. No abdominal aortic aneurysm. Lymph nodes: Unremarkable. No enlarged lymph nodes. Urinary bladder: Diffuse urinary bladder wall thickening may be due to chronic outflow obstruction, please correlate for cystitis. Reproductive: Prostate gland is somewhat enlarged, please correlate clinically. Bones/joints: Stable right L5 pars interarticularis defects with minimal anterolisthesis of L5 relative to S1. Soft tissues: [id number] bilateral fat containing inguinal hernias with nonspecific fluid in the right inguinal canal. Left flank 5.6 cm soft tissue mass demonstrating solid and fluid components, stability is suggestive of benign process, please correlate with history and consider tissue sampling as clinically indicated as malignancy is a consideration. CT/CT abdomen pelvis w con* [id number] IMPRESSION: 1. Prominent fluid in the stomach and small bowel, please correlate for a gastroenteritis. 2. Bibasilar atelectasis. 3. Emphysematous changes. 4. Coronary artery atherosclerotic calcifications. 5. Hepatic steatosis. 6. Simple right kidney cyst, negative for follow-up advised. 7. Moderate 2 severe constipation. 8. Moderate to large amount of stool in the rectal vault, please correlate for fecal impaction. 9. Fetwqdbp-do-ssyve bilateral fat containing inguinal hernias with nonspecific fluid in the right inguinal canal. 10. Diffuse urinary bladder wall thickening may be due to chronic outflow obstruction, please correlate for cystitis. 11. Prostate gland is somewhat enlarged, please correlate clinically. 12. Left flank 5.6 cm soft tissue mass demonstrating solid and fluid components, stability is suggestive of benign process, please correlate with history and consider tissue sampling as clinically indicated as malignancy is a consideration.
[2024-11-17 16:50] LABS: Alanine Aminotransferase 20 U/L (0-41); Albumin Level 3.5 g/dL (3.5-5.2); Alkaline Phosphatase 104 U/L (40-130); Aspartate Amino Transferase 22 U/L (0-40); Blood Urea Nitrogen 21 mg/dL (8-23); Calcium 8.9 mg/dL (8.5-10.5); Carbon Dioxide 20 mmol/L (22-29); Chloride 102 mmol/L (98-107); Creatinine Clr Calc Pharmacy 72.6752; Globulin 3.2 g/dL (1.3-4.6); Glomerular Filtration Rate 74.1 mL/min (90-130); Glucose 138 mg/dL (65-115); Lipase 22 U/L (13-60); Osmolality Calculated 289 mOsm/kg (285-295); Sodium 137 mmol/L (136-145); Total Bilirubin 0.4 mg/dL (0.15-1.2); Total Protein 6.7 g/dL (6.6-8.7)
[2024-11-17 16:51] LABS: Anion Gap 19.1 (5-19); Potassium 4.1 mmol/L (3.5-5.1)
[2024-11-17] MEDS: iohexol 350 mg/mL 500 mL Btl (per mL) IV (16:58)
[2024-11-17] MEDS: Fleet Enema 133 mL Enema PR (17:51)
[2024-11-17] MEDS: lactulose oral liq 20 gm/30 mL UDC 30 GM PO (17:51)
--- NOTE | 2024-11-19 10:46 | PC.SOCIAL ---
Records [facility] to [facility].
== END 2024-11-17 18:34 | disposition home or self-care (01) ==
PROVIDERS: Emergency Provider Emergency Medicine; PCP Nurse Practitioner
DX: K40.90 Unilateral inguinal hernia, without obstruction or gangrene, not specified as recurrent (principal); K59.00 Constipation, unspecified; F17.210 Nicotine dependence, cigarettes, uncomplicated; C43.9 Malignant melanoma of skin, unspecified
CPT/HCPCS: 36415; 74018; 74177; 80053; 83690; 85025; 96374; 99285; J2405; J2704

== ENCOUNTER → 2024-12-15 08:19 | Outpatient (BNVA) | payer OTHER, SELFPAY | PROVIDERS: PCP Nurse Practitioner; Visit Provider Podiatrist Foot & Ankle Surgery | DX: M21.611 Bunion of right foot; M21.612 Bunion of left foot; M20.42 Other hammer toe(s) (acquired), left foot; M20.41 Other hammer toe(s) (acquired), right foot; R03.0 Elevated blood-pressure reading, without diagnosis of hypertension; M25.871 Other specified joint disorders, right ankle and foot; M24.571 Contracture, right ankle | CPT/HCPCS: 73630; 99204 ==

== ENCOUNTER 2024-12-16 12:45 | Observation (INO) | payer OTHER, SELFPAY ==
[2024-12-16] VITALS (7 sets, daily range): BP systolic 131–176; BP diastolic 78–96; PULSE 57–81; RESP 16–18; TEMP 36.4–37; O2SAT 93–100; BMI 25.8
--- NOTE | 2024-12-16 13:11 | ED_ITS ---
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 He does not remember any triggering events that may have pushed his hernia out but did feel it pop out, then followed by a severe pain immediately afterwards. He was able to urinate about 2 hours ago with some discomfort. His last meal was a small bowl of soup about 2 hours ago, and had 2-3 small cups of milk this morning. Did have a bowel movement this morning prior to the onset of this pain. Denies abdominal pain above the groin. Associated Symptoms: Denies chills, fever(s), nausea, syncope and vomiting Related Data Home Medications Medication Instructions Recorded Confirmed atenolol 50 mg tablet 50 mg PO QAM 07/31/23 12/16/24 gabapentin 300 mg capsule 300 mg PO TID 07/31/23 12/16/24 aspirin 81 mg tablet,delayed 81 mg PO QAM 08/15/23 12/16/24 release sildenafil 50 mg tablet 50 mg PO DAILY PRN Sexual Activity 08/26/23 12/16/24 fenofibrate nanocrystallized 145 145 mg PO DAILY 12/16/24 12/16/24 mg tablet meloxicam 15 mg tablet 15 mg PO DAILY 12/16/24 12/16/24 Previous Rx's Medication Instructions Recorded 2-pair Custom co-poly insoles with #2 ea 12/15/24 2 pairs Orthopedic shoes docusate sodium 100 mg capsule 100 mg PO BID #14 caps 12/18/24 (Colace) oxycodone-acetaminophen 7.5 mg-325 1 tab PO Q6H PRN pain #20 tabs 12/18/24 mg tablet Allergies Allergy/AdvReac Type Severity Reaction Status Date / Time No Known Allergies Allergy Verified 12/15/24 08:30 Review of Systems 2 Const: Denies: fever(s) or chills Card: Denies: chest pain, palpitations, irregular heart rhythm or syncope Resp: Denies: dyspnea or wheezing GI: Denies: nausea or vomiting : Denies: difficulty urinating Musc: Denies: neck pain or back pain Skin/Breast: Denies: rash PFSH ED 2 PFSH: Medical History Melanoma Family History Mother Anesthesia complication Cancer Dementia Family/Other Cancer uncle on throat cancer Family/Other Cancer niece had blood cancer Father Stroke Denies family history of Diabetes CAD (coronary artery disease) Clotting disorder Hyperlipidemia Psychiatric illness Chronic kidney disease (CKD) Suicide Bleeding disorder Family history of premature coronary artery disease Lung disease Hypertension Social History Smoking and tobacco/nicotine status: current every day tobacco/nicotine user cigarettes Packs smoked per day: 0.25 Years cigarettes smoked: 50 [ Other cigarette details: smoked since 1972/currently down to 3 cigarrettes daily] Physical Exam 2 Const: COMMON NORMALS: no acute distress GENERAL APPEARANCE: cooperative and comfortable ORIENTATION/CONSCIOUSNESS: Yes awake, Yes oriented to person, Yes oriented to place and Yes oriented to time HENMT: COMMON NORMALS: normocephalic, atraumatic and hearing grossly normal bilaterally HEAD & SCALP: normocephalic and atraumatic Resp: COMMON NORMALS: normal respiratory effort, No retractions, No use of accessory muscles and clear to auscultation bilaterally AUSCULTATION: clear to auscultation bilaterally Cardio: COMMON NORMALS: regular rate, regular rhythm and No murmurs present (Cardio) RATE: regular rate RHYTHM: regular rhythm GI: COMMON NORMALS: No hepatosplenomegaly present AUSCULTATION: Yes normoactive bowel sounds PALPATION: Yes Tenderness to palpation present (GI), No Guarding due to palpation present (GI) and Yes No hepatosplenomegaly present OTHER: Large incarcerated hernia in the right inguinal canal. Was able to manipulate and fully reduce. Extremity: COMMON NORMALS: normal to inspection, capillary refill normal, no clubbing, cyanosis or edema, no calf tenderness and no pedal edema Neuro: SENSORIUM/ORIENTATION: Yes oriented to person, Yes oriented to place and Yes oriented to time Skin: COMMON NORMALS: no rashes or lesions noted GENERAL SKIN EXAM: no rashes or lesions noted Course 2 Vital Signs: Vital signs: Vital Signs Temperature 78.2 F L 12/18/24 14:46 Pulse Rate 56 L 12/18/24 14:46 Respiratory Rate 17 12/18/24 14:46 Blood Pressure 123/75 12/18/24 14:46 Pulse Oximetry 96 12/18/24 14:46 Oxygen Delivery Me thod Room Air 12/18/24 08:03 Oxygen Flow Rate 8 12/17/24 17:29 MDM - Abdominal Pain Medical Decision Making On exam was able to reduce the hernia however with any activity even just trying to sit up in bed he recreated and begins to have pain again discussed with general surgery will admit. Unfortunately given his current condition he can probably no longer put off having the hernia repair completed. Lab Data 12/16/24 13:08 12/16/24 13:57 Labs/Radiology: Radiology Impressions Abdomen/Pelvis CT 12/16/24 14:11 IMPRESSION: 1. No acute abdominal or pelvic abnormalities. 2. Patent RIGHT inguinal canal with a nondilated small bowel loop at the orifice of the hernia. Similar to the prior study. 3. Enlarged urinary bladder with a bladder diverticulum. Mild wall thickening due to outlet obstruction. 4. 6 mm bladder calcification. This calcification was previously at the UV junction on 11/17/2024. 5. Heterogeneous mass with small satellite lesions along the posterior LEFT flank measures 3.4 x 6.0 cm and has been present on prior studies. Decreased in size since 08/30/2023. Noted to be a metastatic lesion on a prior PET/CT from 10/01/2023. Laboratory Results WBC 9.40 10^3/uL (3.29-11.43) 12/16/24 13:08 RBC 5.03 10^6/uL (3.85-5.65) 12/16/24 13:08 Hgb 14.90 g/dL (11.27-16.99) 12/16/24 13:08 Hct 45.8 % (37-53) 12/16/24 13:08 MCV 91.1 fl (82-101) 12/16/24 13:08 MCH 29.6 pg (27-33) 12/16/24 13:08 MCHC 32.5 g/dL (30-55) 12/16/24 13:08 RDW 13.0 % (12.1-15.1) 12/16/24 13:08 Plt Count 251 10^3/cmm (157-399) 12/16/24 13:08 MPV 10.2 fL (7.4-10.4) 12/16/24 13:08 Neut % (Auto) 78.0 % 12/16/24 13:08 Lymph % (Auto) 13.5 % 12/16/24 13:08 [place] % (Auto) 5.9 % 12/16/24 13:08 Eos % (Auto) 1.9 % 12/16/24 13:08 Baso % (Auto) 0.5 % 12/16/24 13:08 Neut # (Auto) 7.33 10^3/uL (1.8-7.7) 12/16/24 13:08 Lymph # (Auto) 1.3 10^3/uL (0.8-4.8) 12/16/24 13:08 [place] # (Auto) 0.6 10^3/uL (0.2-0.9) 12/16/24 13:08 Eos # (Auto) 0.2 10^3/uL (0.0-0.8) 12/16/24 13:08 Baso # (Auto) 0.1 10^3/uL (0.0-0.1) 12/16/24 13:08 Nucleated RBC % (auto) 0 % 12/16/24 13:08 Nucleated RBCs # 0.0 /100WBC 12/16/24 13:08 Sodium 138 mmol/L (136-145) 12/16/24 13:57 Potassium 4.4 mmol/L (3.5-5.1) 12/16/24 13:57 Chloride 102 mmol/L (98-107) 12/16/24 13:57 Carbon Dioxide 27 mmol/L (22-29) 12/16/24 13:57 Anion Gap 13.4 (5-19) 12/16/24 13:57 BUN 17 mg/dL (8-23) 12/16/24 13:57 Creatinine 0.9 mg/dL (0.7-1.2) 12/16/24 13:57 GFR Calculation 83.7 mL/min (90-130) L 12/16/24 13:57 Glucose 107 mg/dL (65-115) 12/16/24 13:57 Calculated Osmolality 288 mOsm/kg (285-295) 12/16/24 13:57 Lactic Acid 1.1 mmol/L (0.5-2.2) 12/16/24 15:00 Calcium 8.9 mg/dL (8.5-10.5) 12/16/24 13:57 Total Bilirubin 0.3 mg/dL (0.15-1.2) 12/16/24 13:57 AST 18 U/L (0-40) 12/16/24 13:57 ALT 13 U/L (0-41) 12/16/24 13:57 Alkaline Phosphatase 91 U/L (40-130) 12/16/24 13:57 Total Protein 6.4 g/dL (6.6-8.7) L 12/16/24 13:57 Albumin 3.7 g/dL (3.5-5.2) 12/16/24 13:57 Globulin 2.7 g/dL (1.3-4.6) 12/16/24 13:57 Lipase 32 U/L (13-60) 12/16/24 13:57 Urine Color Yellow (Yellow) 12/16/24 13:31 Urine Appearance Turbid (CLEAR) A 12/16/24 13:31 Urine pH 7.5 (5-7) 12/16/24 13:31 Ur Specific [place] 1.019 (1.005-1.030) 12/16/24 13:31 Urine Protein Negative (Negative) 12/16/24 13:31 Urine Glucose (UA) Negative (Normal) 12/16/24 13:31 Urine Ketones Negative (Negative) 12/16/24 13:31 Urine Blood Negative (Negative) 12/16/24 13:31 Urine Nitrate Negative (Negative) 12/16/24 13:31 Urine Bilirubin Negative (Negative) 12/16/24 13:31 Urine Urobilinogen 1.0 mg/dL (Negative) 12/16/24 13:31 Ur Leukocyte Esterase 3+ (Negative) A 12/16/24 13:31 Urine RBC 3-5 /hpf (0-2) 12/16/24 13:31 Urine WBC >100 /hpf (0-5) H 12/16/24 13:31 Ur Squamous Epith Cells 0-5 /hpf (0-5) 12/16/24 13:31 Amorphous Sediment 3+ /hpf 12/16/24 13:31 Urine Bacteria None seen /hpf (NONE) 12/16/24 13:31 Hyaline Casts 0-4 /lpf H 12/16/24 13:31 Urine Yeast 2+ /hpf H 12/16/24 13:31 All radiology interpretation(s) finalized by discharge Discharge Plan Discharge Patient Disposition: Admitted As Inpatient Admit Provider: Law Fields Clinical Impression: Incarcerated right inguinal hernia Condition: Stable Discharge Diet: Advance as tolerated Discharge Activity: Limit activity as instructed Coding Level of Care Code ED Samples And Repairs Preparer for Chucho Amado
--- NOTE | 2024-12-16 13:15 | PC.PHAR ---
[facility] is [facility] 12/16/24 1:13pm. [facility] due to pt is poor historian.
[2024-12-16 13:17] LABS: Basophils # 0.1 10^3/uL (0.0-0.1); Basophils % 0.5 %; Eosinophils # 0.2 10^3/uL (0.0-0.8); Eosinophils % 1.9 %; Hematocrit 45.8 % (37-53); Lymphocytes # 1.3 10^3/uL (0.8-4.8); Lymphocytes % 13.5 %; Mean Corpuscular HGB Conc 32.5 g/dL (30-55); Mean Corpuscular Hemoglobin 29.6 pg (27-33); Mean Corpuscular Volume 91.1 fl (82-101); Mean Platelet Volume 10.2 fL (7.4-10.4); Monocytes # 0.6 10^3/uL (0.2-0.9); Monocytes % 5.9 %; Neutrophils # 7.33 10^3/uL (1.8-7.7); Nucleated Red Blood Cells % 0 %; Platelet Count 251 10^3/cmm (157-399); Red Blood Count 5.03 10^6/uL (3.85-5.65)
[2024-12-16 13:40] LABS: Bilirubin Urine Negative (Negative); Blood Urine Negative (Negative); Glucose Urine UA Negative (Normal); Ketones Urine Negative (Negative); Leukocyte Esterase Urine 3+ (Negative); Nitrate Urine Negative (Negative); Protein Urine Negative (Negative); Specific Gravity, Urine 1.019 (1.005-1.030); Urine Appearance Turbid (CLEAR); Urine Color Yellow (Yellow); pH Urine 7.5 (5-7)
[2024-12-16 13:45] LABS: Add Urine Microscopic? YES; Bacteria Urine None Seen /hpf; Hyaline Casts Urine 0-4 /lpf; Squamous Epithelial Cell Urine 0-5 /hpf (0-5); WBC Urine >100 /hpf (0-5)
--- NOTE | 2024-12-16 14:11 | CT_ITS ---
WS: [id number] CT ABDOMEN AND PELVIS NONCONTRAST HISTORY: Abdominal pain, RIGHT lower quadrant pain. TECHNIQUE: Imaging performed through the abdomen and pelvis. Coronal and sagittal reformats are submi tted. All CT scans at [facility] use at least one of these dose optimization techniques: auto mated exposure control; mA and/or kV adjustment per patient size (includes targeted exams where dose is matched to clinical indication); or iterative reconstruction. DLP: 551.43 mGy.cm COMPARISON: 11/17/2024 Lower thorax: Lung bases are clear. Visualized heart is normal. No hiatal hernia. Liver: Normal size liver. No mass or bile duct dilatation. Gallbladder: Normal gallbladder. No pericholecystic fluid or cholelithiasis. No gallbladder wall thic kening. Pancreas: Normal size and attenuation. Normal pancreatic duct. No pancreatitis or mass. Spleen: Normal. Adrenal glands: Normal. No mass. Right kidney: Normal size kidney with no mass or hydronephrosis. Left kidney: Normal size kidney with no mass or hydronephrosis. Aorta: Mild atherosclerosis abdominal aorta with no aneurysm. No free fluid, intraperitoneal air or significant lymphadenopathy. GI tract: Normal noncontrast imaging of the stomach, small bowel and colon. No obstruction or wall th ickening. Normal appendix. Abdominal wall: Negative. No hernia. Pelvis: Bilateral inguinal canals are patent. Loop of small bowel with orifice of the RIGHT inguinal hernia. There is fluid in the hernia sac, similar to the prior study of 11/17/2024. Urinary bladder i s moderately distended. Small diverticulum from the fundus. Mild wall thickening posteriorly at the s ite of prostate encroachment. Urinary bladder calcification measures 6 mm. This calcification was at the UVJ junction on 11/17/2024 . Osseous structures: Advanced degenerative spondylitic changes throughout the lumbar spine. L5 anterol isthesis by 6 mm. There is a large mixed density mass with necrotic center centered along the posterior LEFT flank at t he level of L3. Mass measures 3.4 x 6.0 cm. There are a few small similar satellite lesions. Mass has been present for multiple years and decreased in size since 08/30/2023. Similar in size to 11/17/2024 . Small RIGHT hydrocele. CT/CT abdomen pelvis wo con [id number] IMPRESSION: 1. No acute abdominal or pelvic abnormalities. 2. Patent RIGHT inguinal canal with a nondilated small bowel loop at the orifi ce of the hernia. Similar to the prior study. 3. Enlarged urinary bladder with a bladder diverticulum. Mild wall thickening due to outlet obstruction. 4. 6 mm bladder calcification. This calcification was previously at the UV lary ction on 11/17/2024. 5. Heterogeneous mass with small satellite lesions along the posterior LEFT fl ank measures 3.4 x 6.0 cm and has been present on prior studies. Decreased in s ize since 08/30/2023. Noted to be a metastatic lesion on a prior PET/CT from 10/01/2023.
[2024-12-16 14:26] LABS: UA Slide Review UA Slide Review Perf
[2024-12-16 14:27] LABS: Add Urine Culture? Yes; Amorphous Sediment Urine 3+ /hpf
[2024-12-16 14:34] LABS: Alanine Aminotransferase 13 U/L (0-41); Albumin Level 3.7 g/dL (3.5-5.2); Alkaline Phosphatase 91 U/L (40-130); Anion Gap 13.4 (5-19); Aspartate Amino Transferase 18 U/L (0-40); Blood Urea Nitrogen 17 mg/dL (8-23); Calcium 8.9 mg/dL (8.5-10.5); Carbon Dioxide 27 mmol/L (22-29); Chloride 102 mmol/L (98-107); Creatinine Clr Calc Pharmacy 78.7622; Globulin 2.7 g/dL (1.3-4.6); Glomerular Filtration Rate 83.7 mL/min (90-130); Glucose 107 mg/dL (65-115); Lipase 32 U/L (13-60); Osmolality Calculated 288 mOsm/kg (285-295); Potassium 4.4 mmol/L (3.5-5.1); Sodium 138 mmol/L (136-145); Total Bilirubin 0.3 mg/dL (0.15-1.2); Total Protein 6.4 g/dL (6.6-8.7)
[2024-12-16 15:28] LABS: Lactic Sepsis W/Reflex 1.1 mmol/L (0.5-2.2)
[2024-12-16] MEDS: cefTRIAXone 1,000 mg SDV 1000 MG IVP (15:47)
--- NOTE | 2024-12-16 20:39 | PC.NURSE ---
Dr. Fields ordered for patient to have regular diet until midnight, then clear liquid diet until 10 AM, then NPO.
--- NOTE | 2024-12-16 21:07 | P.HP_ITS ---
Providers/Chief Complaint 2 Admitting Physician: Law Fields DO Primary Care Provider: DENISE Ching Chief Complaint: Hernia History of Present Illness Gaurav Shannon is a 69 year old male with history of metastatic malignant melanoma, who comes in with basically a lifelong history of right inguinal hernia. He had a right inguinal hernia repair as a very young child and reports that he has had recurrence and issues with that ever since grade school. Earlier today he had a very large bulge in his right groin and significant pain and nausea. He was unable to reduce the hernia. The pain was sharp and constant and did not radiate. Nothing made the pain better. He went to the emergency room where they were able to partially reduce the hernia and improve his symptoms significantly. He also believes he has a left inguinal hernia. He denies any hematochezia and/or melena Review of Systems 2 General: Reports: 10 or more systems reviewed and unremarkable except in HPI and below Medications/Allergies Home Medications Medication Instructions Recorded Confirmed Last Taken Type atenolol 50 mg tablet 50 mg PO QAM 07/31/23 12/16/24 08/29/23 History gabapentin 300 mg capsule 300 mg PO TID 07/31/23 12/16/24 08/29/23 History aspirin 81 mg tablet,delayed 81 mg PO QAM 08/15/23 12/16/24 08/29/23 History release sildenafil 50 mg tablet 50 mg PO DAILY PRN Sexual Activity 08/26/23 12/16/24 08/27/23 History 2-pair Custom co-poly insoles with #2 ea 12/15/24 12/16/24 Unknown Rx 2 pairs Orthopedic shoes fenofibrate nanocrystallized 145 145 mg PO DAILY 12/16/24 12/16/24 Unknown History mg tablet meloxicam 15 mg tablet 15 mg PO DAILY 12/16/24 12/16/24 Unknown History Allergies Allergy/AdvReac Type Severity Reaction Status Date / Time No Known Allergies Allergy Verified 12/15/24 08:30 PFSH Acute 2 PFSH: Medical History Melanoma Family History Mother Anesthesia complication Cancer Dementia Family/Other Cancer uncle on throat cancer Family/Other Cancer niece had blood cancer Father Stroke Denies family history of Diabetes CAD (coronary artery disease) Clotting disorder Hyperlipidemia Psychiatric illness Chronic kidney disease (CKD) Suicide Bleeding disorder Family history of premature coronary artery disease Lung disease Hypertension Social History Smoking and tobacco/nicotine status: current every day tobacco/nicotine user cigarettes Packs smoked per day: 0.25 Years cigarettes smoked: 50 [ Other cigarette details: smoked since 1972/currently down to 3 cigarrettes daily] Vitals/I&O/Wt Last Vital Signs Temp 98.6 F 12/16/24 20:00 Pulse 62 12/16/24 20:00 Resp 16 12/16/24 20:00 BP 159/84 12/16/24 20:00 Pulse Ox 98 12/16/24 20:00 O2 Del Method Room Air 12/16/24 20:00 Weight last 48 hrs Weight 170 lb Physical Exam 2 Narrative: General : Patient is well developed , no acute distress, oriented x3 Head : Normal cephalic, a-traumatic. Ears : Pinnae and external canal are normal. Hearing is normal. Eyes : PERRLA, Sclera and injection are normal. No conjunctival discharge. Nose : Mucous membranes are without erythema. Throat : buccal mucosa is normal, gums are without significant recession or hypertrophy. Lungs : Equal chest rise bilaterally, no use of accessory muscles, trachea is midline. Cor : Rate and rhythm are normal. Abdomen : Soft, ND, tender to palpation over an incarcerated right inguinal hernia that is mostly reduced, no overlying skin color changes, reducible left inguinal hernia, no g/r/m Extremities : No edema, no cyanosis or clubbing, dorsalis pedis pulses are present bilaterally, non-tender to palpation of calves. Upper extremities are normal bilaterally. Back : non-tender to palpation, no CVA tenderness. Neuro : CN II - XII intact, Upper and lower extremities have equal and full strength Data 12/16/24 13:08 12/16/24 13:57 Micro: Microbiology 12/16/24 15:00 Blood Culture - Preliminary Blood SPECIMEN COLLECTED 12/16/24 15:04 Blood Culture - Preliminary Blood SPECIMEN COLLECTED A&P Assessment and plan (1) Bilateral inguinal hernia: (2) Recurrent irreducible inguinal hernia: Plan The emergency room physician was able to mostly reduce his hernia and resolved his acute symptoms. Since the hernia cannot be completely reduced despite my efforts, I will admit him to the hospital for observation. N.p.o. after midnight Tomorrow for laparoscopic repair of recurrent incarcerated right inguinal hernia with mesh and laparoscopic repair of left inguinal hernia with mesh The risks and benefits of the procedure, including but not limited to, bleeding, infection, mesh infection requiring mesh excision antibiotic therapy and repeat surgery, damage surrounding structures, orchiectomy, conversion to an open procedure, scar, numbness, pain, recurrence and/or need for a bilateral repair were explained to the patient. Patient is understanding of the risks and wishes to proceed. Attestations 2 Medical Necessity Statement*: Patient will need to stay in the hospital at least overnight for laparoscopic repair of recurrent incarcerated right inguinal hernia with mesh and left inguinal hernia with mesh Coding Level of Care Code 00704 Diagnoses Bilateral inguinal hernia K40.20 Recurrent irreducible inguinal hernia K40.31
[2024-12-16] MEDS: HYDROcodone-acetaminophen 7.5-325 mg Tablet 1 TAB PO (21:14)
[2024-12-16] MEDS: piperacillin-tazobactam 3.375 GM in sodium chloride 0.9% (plus) 50 ML IV (21:15)
[2024-12-17] VITALS (14 sets, daily range): BP systolic 127–185; BP diastolic 72–123; PULSE 65–91; RESP 14–18; TEMP 36.2–37.1; O2SAT 95–100
[2024-12-17] MEDS: piperacillin-tazobactam 3.375 GM in sodium chloride 0.9% (plus) 50 ML IV ×3 (04:31→20:12)
[2024-12-17] MEDS: HYDROcodone-acetaminophen 7.5-325 mg Tablet 1 TAB PO ×3 (04:32→21:59)
[2024-12-17] MEDS: HYDROmorphone 1 mg/mL INJ 1 mL IVP (12:20)
--- NOTE | 2024-12-17 14:33 | ANES.PREANE2 ---
Pre-Anesthetic Assessment Height/Weight: Height 5 ft 8 in Weight 179 lb 8 oz Temp Pulse Resp BP Pulse Ox O2 Del Method 98.4 F 66 18 153/84 96 Room Air 12/17/24 11:19 12/17/24 11:19 12/17/24 12:20 12/17/24 11:19 12/17/24 11:19 12/17/24 11:19 Preop Diagnosis: Hernia Operation Date: 12/17/24 15:00 Proposed Procedures p Laparoscopic Inguinal Hernia Repair w/ mesh(Bilateral) - Law Fields, DO Was Beta Austin taken within 24 hours: N/A Was Clonidine taken within 24 hours: N/A Last intake: Intake Last Liquid Date 12/17/24 Last Liquid Time 09:00 Last Solid Date 12/17/24 Last Solid Time 19:00 Social No alcohol and No tobacco Anesthetic Plan ASA status: 2 Anesthesia: General Other: No prior issues with anesthesia NPO since this morning. 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 Labs 12/16/2024 reviewed acceptable for procedure Plan for GETA with RSI Medications/Allergies Home Medications Medication Instructions Recorded Confirmed Last Taken Type atenolol 50 mg tablet 50 mg PO QAM 07/31/23 12/16/24 08/29/23 History gabapentin 300 mg capsule 300 mg PO TID 07/31/23 12/16/24 08/29/23 History aspirin 81 mg tablet,delayed 81 mg PO QAM 08/15/23 12/16/24 08/29/23 History release sildenafil 50 mg tablet 50 mg PO DAILY PRN Sexual Activity 08/26/23 12/16/24 08/27/23 History 2-pair Custom co-poly insoles with #2 ea 12/15/24 12/16/24 Unknown Rx 2 pairs Orthopedic shoes fenofibrate nanocrystallized 145 145 mg PO DAILY 12/16/24 12/16/24 Unknown History mg tablet meloxicam 15 mg tablet 15 mg PO DAILY 12/16/24 12/16/24 Unknown History Allergies Allergy/AdvReac Type Severity Reaction Status Date / Time No Known Allergies Allergy Verified 12/15/24 08:30 Current Medications Generic Name Dose Route Start Last Admin Trade Name Freq PRN Reason Stop Dose Admin Hydrocodone Bitart/Acetaminophen 1 tab 12/16/24 20:04 12/17/24 04:32 Hydrocodone-Acetaminophen 7.5-325 Mg Tablet PO 1 tab Q4H PRN Administration MODERATE PAIN Hydromorphone HCl 1 mg 12/16/24 20:03 12/17/24 12:20 Hydromorphone 1 Mg/Ml Inj 1 Ml IVP 1 mg Q3H PRN Administration SEVERE PAIN Piperacillin Sod/Tazobactam 50 mls @ 12.5 mls/hr 12/16/24 20:15 12/17/24 12:09 Sod 3.375 gm/ Sodium Chloride IV 12.5 mls/hr Q8H [place] Administration Protocol REPLACED BY [facility] Anesthesia Medical History Melanoma Family History Mother Anesthesia complication Cancer Dementia Family/Other Cancer uncle on throat cancer Family/Other Cancer niece had blood cancer Father Stroke Denies family history of Diabetes CAD (coronary artery disease) Clotting disorder Hyperlipidemia Psychiatric illness Chronic kidney disease (CKD) Suicide Bleeding disorder Family history of premature coronary artery disease Lung disease Hypertension Social History Smoking and tobacco/nicotine status: current every day tobacco/nicotine user cigarettes Packs smoked per day: 0.25 Years cigarettes smoked: 50 [ Other cigarette details: smoked since 1972/currently down to 3 cigarrettes daily] Data Anesthesia 12/16/24 13:08 12/16/24 13:57 Short CBC 12/16/24 Range/Units 13:08 WBC 9.40 (3.29-11.43) 10^3/uL Hgb 14.90 (11.27-16.99) g/dL Hct 45.8 (37-53) % MCV 91.1 (82-101) fl Plt Count 251 (157-399) 10^3/cmm Neut % (Auto) 78.0 % Neut # (Auto) 7.33 (1.8-7.7) 10^3/uL BMP 12/16/24 12/16/24 13:08 13:57 Sodium Cancelled 138 Potassium Cancelled 4.4 Chloride Cancelled 102 Carbon Dioxide Cancelled 27 BUN Cancelled 17 Creatinine Cancelled 0.9 Glucose Cancelled 107 Calcium Cancelled 8.9 Liver Function 12/16/24 12/16/24 Range/Units 13:08 13:57 Total Bilirubin Cancelled 0.3 AST Cancelled 18 ALT Cancelled 13 Alkaline Phosphatase Cancelled 91 Albumin Cancelled 3.7 Urine 12/16/24 Range/Units 13:31 Urine Color Yellow (Yellow) Urine Appearance Turbid A (CLEAR) Urine pH 7.5 (5-7) Ur Specific [place] 1.019 (1.005-1.030) Urine Protein Negative (Negative) Urine Glucose (UA) Negative (Normal) Urine Ketones Negative (Negative) Urine Nitrate Negative (Negative) Urine Bilirubin Negative (Negative) Ur Leukocyte Esterase 3+ A (Negative) Urine RBC 3-5 (0-2) /hpf Urine WBC >100 H (0-5) /hpf Microbiology 12/16/24 13:31 Urine Culture - Preliminary Urine,Clean Catch 12/16/24 15:00 Blood Culture - Preliminary Blood SPECIMEN COLLECTED 12/16/24 15:04 Blood Culture - Preliminary Blood SPECIMEN COLLECTED Cardiac Studies: No Data to Display
--- NOTE | 2024-12-17 15:16 | P.PN_ITS ---
Vitals/I&O/Wt Last Vital Signs Temp 97.4 F L 12/17/24 14:45 Pulse 65 12/17/24 14:45 Resp 18 12/17/24 14:45 BP 150/103 12/17/24 14:45 Pulse Ox 97 12/17/24 14:45 O2 Del Method Room Air 12/17/24 14:45 12/17/24 12/17/24 12/17/24 06:59 14:59 22:59 Intake Total 340 / 700 720 / 720 Balance 340 / 700 720 / 720 Weight last 48 hrs Weight 179 lb 8 oz Weight 178 lb Weight 170 lb Data 12/16/24 13:08 12/16/24 13:57 Micro: Microbiology 12/16/24 13:31 Urine Culture - Preliminary Urine,Clean Catch 12/16/24 15:00 Blood Culture - Preliminary Blood SPECIMEN COLLECTED 12/16/24 15:04 Blood Culture - Preliminary Blood SPECIMEN COLLECTED A&P Assessment and plan (1) Bilateral inguinal hernia: (2) Recurrent irreducible inguinal hernia: Plan Laparoscopic repair of recurrent incarcerated right inguinal hernia with mesh Laparoscopic repair of left inguinal hernia with mesh The risks and benefits of the procedure, including but not limited to, bleeding, infection, mesh infection requiring mesh excision antibiotic therapy and repeat surgery, damage surrounding structures, orchiectomy, conversion to an open procedure, scar, numbness, pain, recurrence and/or need for a bilateral repair were explained to the patient. Patient is understanding of the risks and wishes to proceed. Attestations 2 Medical Necessity Statement*: Patient likely will be discharged home today after the procedure Coding Level of Care Code Acute Code for Chg Fwd Diagnoses Bilateral inguinal hernia K40.20 Recurrent irreducible inguinal hernia K40.31
[2024-12-17] MEDS: lidocaine-epi 2% PF 1:200,000 20 mL SDV 4 ML XX (16:08)
--- NOTE | 2024-12-17 17:02 | P.OP_ITS ---
Operative Report Date of procedure: December 17, 2024 Surgeon: Law Fields DO Procedure: Pre-op diagnosis: Recurrent incarcerated right inguinal hernia Left inguinal hernia Post-op diagnosis: Recurrent incarcerated indirect right inguinal hernia Indirect left inguinal hernia Procedure done: Laparoscopic (TEPP) repair of recurrent incarcerated indirect right inguinal hernia with mesh Laparoscopic (TEPP) repair of indirect left inguinal hernia with mesh Implants: Left and right extra-large 3D max Bard mesh is Specimens removed/disposition: None Surgeon: Law Fields DO Anesthesia: General and Local Estimated blood loss (mL): 5 Complications: None apparent Brief History: This is a very pleasant 69-year-old gentleman who presented to the emergency room with a chronic incarcerated left inguinal hernia that he had had for 60 years and was previously repaired before. He also had a right inguinal hernia. Laparoscopic repair with mesh was indicated. The risk and benefits were explained and documented. Procedure: Patient was wheeled into the operative room and placed on the OR table in a supine position. Abdomen was inspected prepped and draped in usual sterile fashion. Time-out was performed and all present were in agreement. A 15 blade scalpel was used to make 1.2 centimeter incision infraumbilically. Combination of sharp and blunt dissection was performed down to the anterior rectus sheath which was opened sharply. The dissecting balloon was then inserted into the space of Retzius and blown up. We put the camera into the port and identified that we were in the correct space. I then placed 2 5 millimeter trocars suprapubically in the midline. I then used endokitners to bluntly dissect in the space of Retzius out laterally. A very large indirect inguinal hernia was identified on the right. Combination of blunt dissection and external reduction was performed. This is a very extensive and chronic large hernia. There was a significant amount of dissection necessary to reduce the sac. Blunt dissection was performed to dissect down the hernia sac until the vas deferens dove medially. An extra-large 3D max Bard right inguinal mesh was then placed into the space of Retzius. The mesh was unrolled and tacked once medially at the pubic bone. The mesh laid out nicely over the spermatic cord. An indirect inguinal hernia was identified on the left. Blunt dissection was performed to dissect down the hernia sac until the vas deferens dove medially. An extra-large 3D max Bard left inguinal mesh was then placed into the space of Retzius. The mesh was unrolled and tacked once medially at the pubic bone. The mesh laid out nicely over the spermatic cord. Hernia sacs were held underneath the meshes as the insufflation was released. Incisions were closed with 4 O Sunny ryl in a subcuticular interrupted fashion. Skin glue was applied. Patient tolerated the procedure well.
[2024-12-17] MEDS: gabapentin 300 mg Capsule PO (20:13)
[2024-12-18] VITALS: BP 161/103; PULSE 85; RESP 16; TEMP 37; O2SAT 93
[2024-12-18] MEDS: HYDROcodone-acetaminophen 7.5-325 mg Tablet 1 TAB PO ×2 (03:26→08:30)
[2024-12-18 04:00] VITALS: BP 118/74; PULSE 57; RESP 12; TEMP 37; O2SAT 95
[2024-12-18] MEDS: atenolol 50 mg Tablet PO (05:06)
[2024-12-18] MEDS: piperacillin-tazobactam 3.375 GM in sodium chloride 0.9% (plus) 50 ML IV (05:06)
[2024-12-18 06:00] VITALS: BMI 20.6
[2024-12-18 08:03] VITALS: BP 123/75; PULSE 56; RESP 14; TEMP 36.8; O2SAT 96
[2024-12-18] MEDS: gabapentin 300 mg Capsule PO (08:30)
[2024-12-18 10:55] VITALS: RESP 17
[2024-12-18] MEDS: HYDROmorphone 1 mg/mL INJ 1 mL IVP (10:55)
--- NOTE | 2024-12-18 11:38 | P.DS_ITS ---
Discharge Providers Date of Admission: 12/16/24 18:42 Date of Discharge: December 18, 2024 Attending Provider at Admission: Law Fields DO Attending Provider at Discharge: Law Fields DO Primary Care Provider: DENISE Ching Diagnoses at Discharge Discharge Diagnosis (1) Bilateral inguinal hernia: Status: Resolved (2) Recurrent irreducible inguinal hernia: Status: Resolved Reason for Visit Reason for Visit: Hernia Hospital Course Hospital Course This is a very pleasant 69-year-old gentleman who presented to the hospital with an incarcerated recurrent right inguinal hernia and a reducible left inguinal hernia. He underwent laparoscopic repair of bilateral hernias with mesh. He did well postoperatively and was tolerating food the next day. He was discharged home in good condition Physical Exam Narrative: General : Patient is well developed , no acute distress, oriented x3 Head : Normal cephalic, a-traumatic. Ears : Pinnae and external canal are normal. Hearing is normal. Eyes : PERRLA, Sclera and injection are normal. No conjunctival discharge. Nose : Mucous membranes are without erythema. Throat : buccal mucosa is normal, gums are without significant recession or hypertrophy. Lungs : Equal chest rise bilaterally, no use of accessory muscles, trachea is midline. Cor : Rate and rhythm are normal. Abdomen : Soft, ND, appropriately tender, no g/r/m Extremities : No edema, no cyanosis or clubbing, dorsalis pedis pulses are present bilaterally, non-tender to palpation of calves. Upper extremities are normal bilaterally. Back : non-tender to palpation, no CVA tenderness. Neuro : CN II - XII intact, Upper and lower extremities have equal and full s trength Discharge Data Studies Completed and Pending Completed Studies During Hospitalization Category Date Time Status CT abdomen pelvis con [id number] Stat Cat Scan 12/16/24 14:11 Completed Pending at discharge Category Date Time Status Blood Culture Stat Lab 12/16/24 15:00 Results Urine Culture Stat Lab 12/16/24 13:31 Results Radiology Impressions Abdomen/Pelvis CT 12/16/24 14:11 IMPRESSION: 1. No acute abdominal or pelvic abnormalities. 2. Patent RIGHT inguinal canal with a nondilated small bowel loop at the orifice of the hernia. Similar to the prior study. 3. Enlarged urinary bladder with a bladder diverticulum. Mild wall thickening due to outlet obstruction. 4. 6 mm bladder calcification. This calcification was previously at the UV junction on 11/17/2024. 5. Heterogeneous mass with small satellite lesions along the posterior LEFT flank measures 3.4 x 6.0 cm and has been present on prior studies. Decreased in size since 08/30/2023. Noted to be a metastatic lesion on a prior PET/CT from 10/01/2023. Laboratory Results WBC 9.40 10^3/uL (3.29-11.43) 12/16/24 13:08 RBC 5.03 10^6/uL (3.85-5.65) 12/16/24 13:08 Hgb 14.90 g/dL (11.27-16.99) 12/16/24 13:08 Hct 45.8 % (37-53) 12/16/24 13:08 MCV 91.1 fl (82-101) 12/16/24 13:08 MCH 29.6 pg (27-33) 12/16/24 13:08 MCHC 32.5 g/dL (30-55) 12/16/24 13:08 RDW 13.0 % (12.1-15.1) 12/16/24 13:08 Plt Count 251 10^3/cmm (157-399) 12/16/24 13:08 MPV 10.2 fL (7.4-10.4) 12/16/24 13:08 Neut % (Auto) 78.0 % 12/16/24 13:08 Lymph % (Auto) 13.5 % 12/16/24 13:08 [place] % (Auto) 5.9 % 12/16/24 13:08 Eos % (Auto) 1.9 % 12/16/24 13:08 Baso % (Auto) 0.5 % 12/16/24 13:08 Neut # (Auto) 7.33 10^3/uL (1.8-7.7) 12/16/24 13:08 Lymph # (Auto) 1.3 10^3/uL (0.8-4.8) 12/16/24 13:08 [place] # (Auto) 0.6 10^3/uL (0.2-0.9) 12/16/24 13:08 Eos # (Auto) 0.2 10^3/uL (0.0-0.8) 12/16/24 13:08 Baso # (Auto) 0.1 10^3/uL (0.0-0.1) 12/16/24 13:08 Nucleated RBC % (auto) 0 % 12/16/24 13:08 Nucleated RBCs # 0.0 /100WBC 12/16/24 13:08 Sodium 138 mmol/L (136-145) 12/16/24 13:57 Potassium 4.4 mmol/L (3.5-5.1) 12/16/24 13:57 Chloride 102 mmol/L (98-107) 12/16/24 13:57 Carbon Dioxide 27 mmol/L (22-29) 12/16/24 13:57 Anion Gap 13.4 (5-19) 12/16/24 13:57 BUN 17 mg/dL (8-23) 12/16/24 13:57 Creatinine 0.9 mg/dL (0.7-1.2) 12/16/24 13:57 GFR Calculation 83.7 mL/min (90-130) L 12/16/24 13:57 Glucose 107 mg/dL (65-115) 12/16/24 13:57 Calculated Osmolality 288 mOsm/kg (285-295) 12/16/24 13:57 Lactic Acid 1.1 mmol/L (0.5-2.2) 12/16/24 15:00 Calcium 8.9 mg/dL (8.5-10.5) 12/16/24 13:57 Total Bilirubin 0.3 mg/dL (0.15-1.2) 12/16/24 13:57 AST 18 U/L (0-40) 12/16/24 13:57 ALT 13 U/L (0-41) 12/16/24 13:57 Alkaline Phosphatase 91 U/L (40-130) 12/16/24 13:57 Total Protein 6.4 g/dL (6.6-8.7) L 12/16/24 13:57 Albumin 3.7 g/dL (3.5-5.2) 12/16/24 13:57 Globulin 2.7 g/dL (1.3-4.6) 12/16/24 13:57 Lipase 32 U/L (13-60) 12/16/24 13:57 Urine Color Yellow (Yellow) 12/16/24 13:31 Urine Appearance Turbid (CLEAR) A 12/16/24 13:31 Urine pH 7.5 (5-7) 12/16/24 13:31 Ur Specific [place] 1.019 (1.005-1.030) 12/16/24 13:31 Urine Protein Negative (Negative) 12/16/24 13:31 Urine Glucose (UA) Negative (Normal) 12/16/24 13:31 Urine Ketones Negative (Negative) 12/16/24 13:31 Urine Blood Negative (Negative) 12/16/24 13:31 Urine Nitrate Negative (Negative) 12/16/24 13:31 Urine Bilirubin Negative (Negative) 12/16/24 13:31 Urine Urobilinogen 1.0 mg/dL (Negative) 12/16/24 13:31 Ur Leukocyte Esterase 3+ (Negative) A 12/16/24 13:31 Urine RBC 3-5 /hpf (0-2) 12/16/24 13:31 Urine WBC >100 /hpf (0-5) H 12/16/24 13:31 Ur Squamous Epith Cells 0-5 /hpf (0-5) 12/16/24 13:31 Amorphous Sediment 3+ /hpf 12/16/24 13:31 Urine Bacteria None seen /hpf (NONE) 12/16/24 13:31 Hyaline Casts 0-4 /lpf H 12/16/24 13:31 Urine Yeast 2+ /hpf H 12/16/24 13:31 Procedures Performed Laparoscopic repair of recurrent incarcerated right inguinal hernia with mesh Laparoscopic repair of left inguinal hernia with mesh Vitals Last Vital Signs Temp 98.2 F 12/18/24 08:03 Pulse 56 L 12/18/24 08:03 Resp 17 12/18/24 10:55 BP 123/75 12/18/24 08:03 Pulse Ox 96 12/18/24 08:03 O2 Del Method Room Air 12/18/24 08:03 O2 Flow Rate 8 12/17/24 17:29 Discharge Plan Discharge Patient Disposition: Home Health Service Condition: Stable Prescriptions: New oxycodone-acetaminophen 7.5-325 mg tablet 1 tab PO Q6H PRN (Reason: pain) Qty: 20 0RF polyethylene glycol 3350 [Miralax] 17 gram/dose powder 17 g PO DAILY 7 Days Qty: 119 0RF docusate sodium [Colace] 100 mg capsule 100 mg PO BID Qty: 14 0RF Continued aspirin 81 mg tablet,delayed release (DR/EC) 81 mg PO QAM (DME) 2-pair Custom co-poly insoles with 2 pairs Orthopedic shoes See Rx Instructions .Route .MEDSUPPLY Qty: 2 0RF Rx Instructions: [facility] directed [facility] atenolol 50 mg tablet 50 mg PO QAM gabapentin 300 mg capsule 300 mg PO TID sildenafil 50 mg tablet 50 mg PO DAILY PRN (Reason: Sexual Activity) Rx Instructions: administer 30 minutes to 4 hours before activity/1 tab broken in half fenofibrate nanocrystallized 145 mg Tablet 145 mg PO DAILY Held meloxicam 15 mg Tablet 15 mg PO DAILY Hold Instructions: Resume on 12/19/24. Discharge Orders: Discharge Order (Routine); Ordered 12/18/24 Ordered By: Law Fields Referrals: [facility] [Outside] Jade Adamson, [employer] [facility] [employer] [Primary Care Provider] - 4-7 days Law Fields DO [Physician] - 2 weeks Discharge Diet: Advance as tolerated Discharge Activity: Limit activity as instructed Patient Instructions: Acute Wound Care (DC), Opioid Safety, Post Anesthesia Care Activity Restrictions/Additional Instructions: No lifting, pushing or pulling over 15 pounds for 6 weeks. Do not soak incisions underwater for 2 weeks. Shower daily. Let the glue fall off on its own. Discharge Attestations Time Spent in Discharge Care*: less than 30 min Quality Metrics Clinical Quality Measures [ No reported AMI, CVA or VTE this stay] Coding Level of Care Code Acute Code for Chg Fwd Diagnoses Bilateral inguinal hernia K40.20 Recurrent irreducible inguinal hernia K40.31
[2024-12-18 14:46] VITALS: BP 123/75; PULSE 56; RESP 17; TEMP 25.7; O2SAT 96
== END 2024-12-18 14:47 | disposition home health service (06) ==
LOC: ER 18:39 → MEDSURG 18:42
PROVIDERS: Admitting Provider Surgery; Emergency Provider Family Medicine; PCP Nurse Practitioner; Visit Provider Surgery
PROC: (CPT 49650; principal; 2024-12-17 15:00)
DX: K40.31 Unilateral inguinal hernia, with obstruction, without gangrene, recurrent (principal); K40.90 Unilateral inguinal hernia, without obstruction or gangrene, not specified as recurrent; Z79.899 Other long term (current) drug therapy; Z79.82 Long term (current) use of aspirin; F17.210 Nicotine dependence, cigarettes, uncomplicated; I10 Essential (primary) hypertension; Z85.841 Personal history of malignant neoplasm of brain
CPT/HCPCS: 49651; 49650; 36415; 74176; 80053; 81001; 83605; 83690; 85025; 87040; 87086; 87106; 99285; C1781; G0378; J0131; J0696; J1100; J1171; J2405; J2543; J2704; J3010; J3490

== ENCOUNTER 2025-01-05 09:46 | Oncology outpatient (recurring) (ONCR) | payer OTHER, SELFPAY | END 2025-01-22 23:59 | disposition home or self-care (01) | PROVIDERS: PCP Nurse Practitioner; Visit Provider Internal Medicine Medical Oncology | DX: Z08 Encounter for follow-up examination after completed treatment for malignant neoplasm (principal); Z85.841 Personal history of malignant neoplasm of brain; K40.90 Unilateral inguinal hernia, without obstruction or gangrene, not specified as recurrent; Z72.0 Tobacco use; Z45.2 Encounter for adjustment and management of vascular access device; R19.04 Left lower quadrant abdominal swelling, mass and lump; Z92.25 Personal history of immunosuppression therapy | CPT/HCPCS: 96523; 99214 ==